=== PATIENT | male | born 1935 | race Caucasian/White ===

== ENCOUNTER 2018-05-27 12:32 | Inpatient (IN) | payer MEDICARE, OTHER ==
[~2018-05-27] VITALS: Ht 180.3 cm; Wt 50.5 kg
[~2018-05-27 12:32] MED LIST: DOXY100C2 PO; HYDR-3583 PO; IBUP-15 PO; LNZ600T PO; NFAMINITAB PO; RNT150T PO; SULF1TAB38 PO
[2018-05-27] MEDS ORDERED: ACETAMINOPHEN 500 MG TAB (TYLENOL) PO STA (12:41)
[2018-05-27] MEDS ORDERED: IBUPROFEN 800 MG (MOTRIN) TAB PO STA (12:41)
[2018-05-27] MEDS ORDERED: LACTATED RINGERS 1,000 ML IV ONE (12:41)
[2018-05-27 12:50] LABS: BASOPHILS % (AUTO) 0 % (0-10); EOSINOPHILS % (AUTO) 0 % (0-10); HEMATOCRIT 30 % (40-54); HEMOGLOBIN 10.3 G/DL (13.3-17.7); LYMPHOCYTES # (AUTO) 0.4 X 10^3 (1.0-4.0); LYMPHOCYTES % (AUTO) 6 % (12-44); MEAN CORPUSCULAR HEMOGLOBIN 32 PG (25-34); MEAN CORPUSCULAR HGB CONC 34 G/DL (32-36); MEAN CORPUSCULAR VOLUME 93 FL (80-99); MEAN PLATELET VOLUME 9.7 FL (7.4-10.4); MONOCYTES # (AUTO) 0.4 X 10^3 (0.0-1.0); MONOCYTES % (AUTO) 7 % (0-12); NEUTROPHILS # (AUTO) 5.3 X 10^3 (1.8-7.8); NEUTROPHILS % (AUTO) 87 % (42-75); PLATELET COUNT 161 10^3/uL (130-400); RED CELL DISTRIBUTION WIDTH 13.6 % (10.0-14.5); WHITE BLOOD COUNT 6.1 10^3/uL (4.3-11.0)
[2018-05-27 12:56] LABS: INR 1.3 (0.8-1.4); PROTHROMBIN TIME PATIENT 15.8 SEC (12.2-14.7)
[2018-05-27 12:57] LABS: BILIRUBIN,URINE NEGATIVE (NEGATIVE); CLARITY,URINE VERY CLOUDY; COLOR,URINE YELLOW; GLUCOSE, URINE (UA) NEGATIVE (NEGATIVE); KETONES,URINE 1+ (NEGATIVE); LEUKOCYTE ESTERASE ,URINE 3+ (NEGATIVE); NITRITE,URINE NEGATIVE (NEGATIVE); PH,URINE 6 (5-9); PROTEIN,URINE 3+ (NEGATIVE); UROBILINOGEN,URINE 4 MG/DL (NORMAL)
[2018-05-27] MEDS ORDERED: LORazepam INJ 2 MG/ML (ATIVAN) VIAL IVP ONE ×2 (13:00→14:45)
[2018-05-27] MEDS ORDERED: LORazepam INJ 2 MG/ML (ATIVAN) VIAL ONE (13:02)
[2018-05-27 13:04] LABS: BACTERIA,URINE LARGE /HPF; SQUAMOUS EPITHELIAL CELL,UR RARE /HPF; WBC,URINE TNTC /HPF
--- NOTE | 2018-05-27 13:04 | ED General ---
General Stated Complaint: VOMITTING AND DIARHEA Source of Information: Skilled Nursing Records Exam Limitations: Other (PT CONFUSED--NORMAL BASELINE PER [facility]AY STAFF. ) History of Present Illness Date Seen by Provider: May 27, 2018 Time Seen by Provider: 12:35 Initial Comments PT ARRIVES VIA EMS FROM [facility] SENT HERE FOR FEVER AND VOMITING THIS AM NO OTHER INFORMATION IS OBTAINABLE PT IS CONFUSED--THIS IS NORMAL BASELINE, PER [facility]F-WAY STAFF PT IS REPEATEDLY YELLING "HELP", IN MID-SENTENCE AND WITH STAFF STANDING NEXT TO HIM, WELL YELLING IN GENERAL PT IS UNCOOPERATIVE, COMBATIVE, TRYING TO BITE, ETC. PT DOES STATE THAT HE VOMITED THIS AM, AND THAT HE DID EAT BREAKFAST TODAY PT DENIES ANY PAIN ANYWHERE, AND NO ABDOMINAL PAIN PT STATES HE HAS NOT HAD DIARRHEA NO OTHER RELEVANT INFORMATION ABOUT CURRENT CONDITION. PT'S SLUBBER HAND MEMORY SEEMS TO BE SOMEWHAT INTACT. PT HAS NO SHORT TERM MEMORY AND IS OTHERWISE ESSENTIALLY CONFUSED PCP: DR. POOL Allergies and Home Medications Allergies Coded Allergies: No Known Drug Allergies (Verified , 02/26/09) Home Medications Arginine/Ascorbate Sod/Zuly AC 1 Each Powd.pack, 1 PACKET PO BID, (Reported) Bisacodyl 10 Mg Supp.rect, 10 MG RC DAILY PRN for CONSTIPATION-3RD LINE, ( Reported) use if MOM is non effective Brimonidine Tartrate 5 Ml Btl, 1 DROP OS BID, (Reported) Cyproheptadine HCl 4 Mg Tablet, 1.5 TAB PO QID, (Reported) Dextran 70/Hypromellose 1 Each Droperette, 1 EACH OS TID, (Reported) Dorzolamide HCl 10 Ml Drops, 1 DROP OU BID, (Reported) Escitalopram Oxalate 10 Mg Tablet, 10 MG PO DAILY, (Reported) Ibuprofen 200 Mg Tablet, 200 MG PO DAILY, (Reported) Latanoprost 2.5 Ml Drops, 1 DROP OS HS, (Reported) Magnesium Hydroxide 400 Mg/5 Ml Oral.susp, 400 MG PO Q12H PRN for CONSTIPATION- 2ND LINE, (Reported) Mirtazapine 15 Mg Tablet, 15 MG PO DAILY, (Reported) Multivitamin 1 Each Tablet, 1 EACH PO DAILY, (Reported) Na Phos,M-B/Na Phos,Di-Ba 133 Ml Enema, 1 EACH RC Q30M PRN for CONSTIPATION-1ST LINE, (Reported) repeat in 30 mins if no results. do not exceed 2 doses in 24 hrs. 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--NO OTHER SURGICAL HISTORY IS OBTAINABLE;MULTIPLE ABSCESS I&D 'S) Eye Surgery, Orthopedic Cardiac: Yes Hypertension Neurological: Yes (NEUROFIBROMATOSIS) Dementia Reproductive Disorders: No Gastrointestinal: Yes Chronic Constipation Musculoskeletal: Yes (NEUROFIBROMATOSIS; LEFT BKA) HEENT: Yes (RIGHT EYE REMOVED; BLIND IN LEFT EYE) Glaucoma Integumentary: Yes (NEUROFIBROMATOSIS; MULTIPLE EPISODES OF CELLULITIS/ABSCESS AND MRSA) Physical Exam Vital Signs Vital Signs - First Documented 05/27/18 12:35 Temp 102.9 Pulse 112 Resp 18 B/P (MAP) 111/90 (97) Pulse Ox 98 O2 Delivery Room Air Capillary Refill : Height, Weight, BMI Height: '" Weight: lbs. oz. kg; BMI Method: General Appearance: Cachetic, Thin, Other (CONTINUOUSLY YELLING "HELP"-- COMBATIVE, TRYING TO BITE, YELLING AT STAFF, ETC. UNKMEPT, MALODOROUS) HEENT: Other (RIGHT EYE REMOVED. BLIND IN LEFT EYE. POOR DENTITION) Respiratory: Normal Breath Sounds, No Accessory Muscle Use, No Respiratory Distress, Decreased Breath Sounds (IN BASES) Cardiovascular: No Edema, No JVD, No Murmur, Normal Peripheral Pulses, Tachycardia Gastrointestinal: Normal Bowel Sounds, No Organomegaly, No Pulsatile Mass, Non Tender, Soft Extremity: No Pedal Edema, Other (LEFT BKA) Neurologic/Psychiatric: Alert, Other (GROSS MOTOR/SENSORY INTACT. MENTATION NOTED ABOVE. PT IS BLIND AND CRANIAL NERVE EXAM IS NOT OBTAINABLE, ARE OTHER NEURO TESTS. PT DOES HAVE SOME DIFFICULTY FOLLOWING SOME COMMANDS) Skin: Normal Color, Warm/Dry, Other (EXTENSIVE NEUROFIBROMAS OVER ENTIRE BODY) Focused Exam Lactate Level 05/27/18 12:35: Lactic Acid Level 1.76 Lactic Acid Level Progress/Results/Core Measures Suspected Sepsis SIRS Temperature: Pulse: Respiratory Rate: Laboratory Tests 05/27/18 12:35: White Blood Count 6.1 Blood Pressure / Mean: 05/27/18 12:35: Lactic Acid Level 1.76 Laboratory Tests 05/27/18 12:35: Creatinine 0.71, INR Comment 1.3, Platelet Count 161, Total Bilirubin 1.0 Results/Orders Lab Results Laboratory Tests Test 05/27/18 12:35 05/27/18 12:45 Range/Units White Blood Count 6.1 4.3-11.0 10^3/uL Red Blood Count 3.20 L 4.35-5.85 10^6/uL Hemoglobin 10.3 L 13.3-17.7 G/DL Hematocrit 30 L 40-54 % Mean Corpuscular Volume 93 80-99 FL Mean Corpuscular Hemoglobin 32 25-34 PG Mean Corpuscular Hemoglobin Concent 34 32-36 G/DL Red Cell Distribution Width 13.6 10.0-14.5 % Platelet Count 161 130-400 10^3/uL Mean Platelet Volume 9.7 7.4-10.4 FL Neutrophils (%) (Auto) 87 H 42-75 % Lymphocytes (%) (Auto) 6 L 12-44 % Monocytes (%) (Auto) 7 0-12 % Eosinophils (%) (Auto) 0 0-10 % Basophils (%) (Auto) 0 0-10 % Neutrophils # (Auto) 5.3 1.8-7.8 X 10^3 Lymphocytes # (Auto) 0.4 L 1.0-4.0 X 10^3 Monocytes # (Auto) 0.4 0.0-1.0 X 10^3 Eosinophils # (Auto) 0.0 0.0-0.3 10^3/uL Basophils # (Auto) 0.0 0.0-0.1 10^3/uL Neutrophils % (Manual) 85 % Lymphocytes % (Manual) 9 % Monocytes % (Manual) 6 % Blood Morphology Comment NORMAL Prothrombin Time 15.8 H 12.2-14.7 SEC INR Comment 1.3 0.8-1.4 Activated Partial Thromboplast Time 35 24-35 SEC Sodium Level 139 135-145 MMOL/L Potassium Level 4.4 3.6-5.0 MMOL/L Chloride Level 111 H 98-107 MMOL/L Carbon Dioxide Level 22 21-32 MMOL/L Anion Gap 6 5-14 MMOL/L Blood Urea Nitrogen 34 H 7-18 MG/DL Creatinine 0.71 0.60-1.30 MG/DL Estimat Glomerular Filtration Rate > 60 BUN/Creatinine Ratio 48 Glucose Level 114 H 70-105 MG/DL Lactic Acid Level 1.76 0.50-2.00 MMOL/L Calcium Level 7.9 L 8.5-10.1 MG/DL Magnesium Level 1.8 1.8-2.4 MG/DL Total Bilirubin 1.0 0.1-1.0 MG/DL Aspartate Amino Transf (AST/SGOT) 27 5-34 U/L Alanine Aminotransferase (ALT/SGPT) 13 0-55 U/L Alkaline Phosphatase 59 40-136 U/L Troponin I < 0.30 <0.30 NG/ML Total Protein 5.4 L 6.4-8.2 GM/DL Albumin 2.8 L 3.2-4.5 GM/DL Amylase Level 65 25-125 U/L Lipase 8 8-78 U/L TSH [place] Testing 1.17 0.35-4.94 UIU/ML Urine Color YELLOW Urine Clarity VERY CLOUDY H Urine pH 6 5-9 Urine Specific [place] 1.015 L 1.016-1.022 Urine Protein 3+ H NEGATIVE Urine Glucose (UA) NEGATIVE NEGATIVE Urine Ketones 1+ H NEGATIVE Urine Nitrite NEGATIVE NEGATIVE Urine Bilirubin NEGATIVE NEGATIVE Urine Urobilinogen 4 H NORMAL MG/DL Urine Leukocyte Esterase 3+ H NEGATIVE Urine RBC (Auto) 5+ H NEGATIVE Urine RBC 10-25 H /HPF Urine WBC TNTC H /HPF Urine Squamous Epithelial Cells RARE /HPF Urine Crystals NONE /LPF Urine Bacteria LARGE H /HPF Urine Casts NONE /LPF Urine Mucus NEGATIVE /LPF Urine Culture Indicated YES Micro Results Microbiology 05/27/18 Urine Culture - Preliminary, Resulted Sent To [facility] My Orders Orders - BAM MALIN DO Saline Lock/Iv-Start (05/27/18 12:41) Ekg Tracing (05/27/18 12:41) Catheter(Urinary) Insert & Ass 15 (05/27/18 12:41) Monitor-Rhythm Ecg Trace Only (05/27/18 12:41) Amylase (05/27/18 12:41) Cbc With Automated Diff (05/27/18 12:41) Comprehensive Metabolic Panel (05/27/18 12:41) Lactic Acid Analyzer (05/27/18 12:41) Lipase (05/27/18 12:41) Magnesium (05/27/18 12:41) Protime With Inr (05/27/18 12:41) Partial Thromboplastin Time (05/27/18 12:41) Thyroid Analyzer (05/27/18 12:41) Troponin I (05/27/18 12:41) Ua Culture If Indicated (05/27/18 12:41) Blood Culture (05/27/18 12:41) Chest 1 View, Ap/Pa Only (05/27/18 12:41) Saline Lock/Iv-Start (05/27/18 12:41) Lactated Ringers (Lr 1000 Ml Iv Solution (05/27/18 12:41) Acetaminophen Tablet (Tylenol Tablet) (05/27/18 12:41) Ibuprofen Tablet (Motrin Tablet) (05/27/18 12:41) Manual Differential (05/27/18 12:35) Lorazepam Injection (Ativan Injection) (05/27/18 13:00) Urine Culture (05/27/18 12:45) Lorazepam Injection (Ativan Injection) (05/27/18 13:02) Ceftriaxone Injection (Rocephin Injectio (05/27/18 13:15) Lorazepam Injection (Ativan Injection) (05/27/18 14:45) Medications Given in ED Current Medications Medications Dose Ordered Sig/Selena Route Start Time Stop Time Status Last Admin Dose Admin Ceftriaxone Sodium 1000 mg/ Sodium Chloride 50 ml @ 100 mls/hr ONCE ONCE IV 05/27/18 13:15 05/27/18 13:44 DC 05/27/18 14:35 100 MLS/HR Lactated Ringer's 1,000 ml @ 0 mls/hr Q0M ONCE IV 05/27/18 12:41 05/27/18 12:44 DC 05/27/18 14:13 1,000 MLS/HR Lorazepam 0.5 mg ONCE ONCE IVP 05/27/18 13:00 7/14/18 13:09 DC 05/27/18 13:05 0.5 MG Vital Signs/I&O 05/27/18 05/27/18 05/27/18 05/27/18 12:35 15:08 15:30 16:52 Temp 102.9 99.5 99.8 Pulse 112 94 92 Resp 18 18 16 B/P (MAP) 111/90 (97) 90/60 101/62 (75) Pulse Ox 98 97 96 O2 Delivery Room Air Room Air Room Air Room Air Capillary Refill : Progress Note : Progress Note TEMP 102.9 ON ARRIVAL--COMING DOWN AT TIME OF ADMIT. PT GIVEN ATIVAN FOR AGITATION--PT CALMED AND ABLE TO REST FOR MOST OF REMAINDER OF ER STAY, DID REQUIRE REPEAT DOSE OF ATIVAN DUE TO AGITATION AFTER AN ADDITIONAL LAB DRAW. NO COUGH, DYSPNEA OR HYPOXIA AT ANY TIME DURING ER STAY BP UP WITH FLUIDS TO > 100 SYSTOLIC WITH LESS THAN 1 LITER OF FLUIDS GIVEN ECG Initial ECG Impression Date: May 27, 2018 Initial ECG Impression Time: 12:38 Initial ECG Rate: 106 Initial ECG Rhythm: S.Tach (MUCH ARTIFACT DUE TO PT UNCOOPERATIVENESS. ) Diagnostic Imaging Comments CXR--INFILTRATE IN LEFT LUNG BASE, POSSIBLE DEVELOPING INFILTRATE IN RIGHT LUNG BASE, PER RADIOLOGIST REPORT @ [address]: [address] Departure Communication (Admissions) 1353--CALLED DR. HURT, CASH APPLICATIONS COORDINATOR FOR [facility], ACCEPTS PT FOR ADMIT Impression Primary Impression: Severe sepsis Additional Impressions: UTI (urinary tract infection) Bilateral pneumonia Dementia Dehydration Anemia Disposition: 09 ADMITTED INPATIENT Condition: Improved Admissions Decision to Admit Reason: Admit from ER (General) Decision to Admit/Date: May 27, 2018 Time/Decision to Admit Time: 13:55 Departure-Patient Inst. Referrals: AIDEN BRYANT MD (PCP/Family) Primary Care Physician BAM MALIN DO May 27, 2018 13:04
[2018-05-27 13:07] LABS: ALANINE AMINOTRANSFERASE 13 U/L (0-55); ALBUMIN 2.8 GM/DL (3.2-4.5); ALKALINE PHOSPHATASE 59 U/L (40-136); AMYLASE 65 U/L (25-125); BUN/CREATININE RATIO 48; CALCIUM 7.9 MG/DL (8.5-10.1); CARBON DIOXIDE 22 MMOL/L (21-32); CHLORIDE 111 MMOL/L (98-107); CREATININE SERUM 0.71 MG/DL (0.60-1.30); GFR ESTIMATED > 60; GLUCOSE 114 MG/DL (70-105); LIPASE 8 U/L (8-78); MAGNESIUM 1.8 MG/DL (1.8-2.4); POTASSIUM 4.4 MMOL/L (3.6-5.0); SODIUM 139 MMOL/L (135-145); TOTAL PROTEIN 5.4 GM/DL (6.4-8.2)
[2018-05-27 13:14] LABS: LYMPHOCYTES % (MANUAL) 9 %; MONOCYTES % (MANUAL) 6 %; NEUTROPHILS % (MANUAL) 85 %; RBC MORPH NORMAL
[2018-05-27] MEDS ORDERED: cefTRIAXone INJECTION 1,000 MG in NS (IVPB) 50 ML IV ONE (13:15)
--- NOTE | 2018-05-27 13:20 | Diagnostic Imaging Report ---
INDICATION: Fever COMPARISON: None. FINDINGS: Single view of the chest demonstrates infiltrate in the left lung base. Questionable developing infiltrate is seen in the right base. There was no pneumothorax or large effusion. The heart is normal. Osseous structures are age-appropriate. IMPRESSION: Infiltrate left lung base, questionable developing infiltrate right lung base. Followup recommended. Dictated by: Dictated on workstation # [id number]
[2018-05-27 13:26] LABS: TSH (THYROID ANALYZER) 1.17 UIU/ML (0.35-4.94)
[2018-05-27 15:30] VITALS: BP 101/62
[2018-05-27] MEDS ORDERED: ACETAMINOPHEN 500 MG TAB (TYLENOL) PO PRN (15:45)
[2018-05-27] MEDS ORDERED: ONDANSETRON 4 MG/2 ML (SDV) Z0FRAN IV PRN (15:45)
[2018-05-27] MEDS ORDERED: IBUPROFEN 800 MG (MOTRIN) TAB PO PRN (15:45)
[2018-05-27] MEDS ORDERED: LEVOFLOXACIN 750 MG/D5W 150 ML PRE-MIX IV SCH (16:00)
[2018-05-27] MEDS: D5 1/2 NS W/KCL 20 MEQ/L 1,000 ML IV SCH ×2 (16:20→22:15)
[2018-05-27] MEDS: PANTOPRAZOLE 40 MG/10 ML (PROTONIX) VIAL IV SCH (16:21)
--- NOTE | 2018-05-27 16:43 | History & Physicial (CHS) ---
HPI History of Present Illness: 83-year-old male admitted to [facility] notified me of patient having a fever and vomiting this morning. He was taken to [facility] emergency department where he was evaluated. Apparently patient prior to ED was noted to repeatedly help. He was uncooperative and combative. He denied any pain. He is with dementia and not a very good historian. Exam Limitations: clinical condition Date seen by provider: May 27, 2018 Time Seen by Provider: 16:50 Attending Physician Freddy Hurt MD PCP Edgardo Schmitz MD Consult Date of Admission May 27, 2018 at 13:53 Home Medications Home Medications Reviewed patient Home Medication Reconciliation performed by pharmacy medication reconciliations pharmacy technician assistant and/or nursing. Patients Allergies have been reviewed. Allergies Coded Allergies: No Known Drug Allergies (Verified , 02/26/09) PLN-Ghgmbc-Wkujap Hx Patient Social History Alcohol Use: Denies Use Recreational Drug Use: No Smoking Status: Former Smoker Type Used: Cigarettes Recent Foreign Travel: No Contact w/other who traveled: No Recent Hopitalizations: No (february 2009) Recent Infectious Disease Expo: No Review of Systems (CHC) Constitutional: see HPI Reviewed Test Results Reviewed Test Results Lab Laboratory Tests Test 05/27/18 12:35 05/27/18 12:45 Range/Units White Blood Count 6.1 4.3-11.0 10^3/uL Red Blood Count 3.20 L 4.35-5.85 10^6/uL Hemoglobin 10.3 L 13.3-17.7 G/DL Hematocrit 30 L 40-54 % Mean Corpuscular Volume 93 80-99 FL Mean Corpuscular Hemoglobin 32 25-34 PG Mean Corpuscular Hemoglobin Concent 34 32-36 G/DL Red Cell Distribution Width 13.6 10.0-14.5 % Platelet Count 161 130-400 10^3/uL Mean Platelet Volume 9.7 7.4-10.4 FL Neutrophils (%) (Auto) 87 H 42-75 % Lymphocytes (%) (Auto) 6 L 12-44 % Monocytes (%) (Auto) 7 0-12 % Eosinophils (%) (Auto) 0 0-10 % Basophils (%) (Auto) 0 0-10 % Neutrophils # (Auto) 5.3 1.8-7.8 X 10^3 Lymphocytes # (Auto) 0.4 L 1.0-4.0 X 10^3 Monocytes # (Auto) 0.4 0.0-1.0 X 10^3 Eosinophils # (Auto) 0.0 0.0-0.3 10^3/uL Basophils # (Auto) 0.0 0.0-0.1 10^3/uL Neutrophils % (Manual) 85 % Lymphocytes % (Manual) 9 % Monocytes % (Manual) 6 % Blood Morphology Comment NORMAL Prothrombin Time 15.8 H 12.2-14.7 SEC INR Comment 1.3 0.8-1.4 Activated Partial Thromboplast Time 35 24-35 SEC Sodium Level 139 135-145 MMOL/L Potassium Level 4.4 3.6-5.0 MMOL/L Chloride Level 111 H 98-107 MMOL/L Carbon Dioxide Level 22 21-32 MMOL/L Anion Gap 6 5-14 MMOL/L Blood Urea Nitrogen 34 H 7-18 MG/DL Creatinine 0.71 0.60-1.30 MG/DL Estimat Glomerular Filtration Rate > 60 BUN/Creatinine Ratio 48 Glucose Level 114 H 70-105 MG/DL Lactic Acid Level 1.76 0.50-2.00 MMOL/L Calcium Level 7.9 L 8.5-10.1 MG/DL Magnesium Level 1.8 1.8-2.4 MG/DL Total Bilirubin 1.0 0.1-1.0 MG/DL Aspartate Amino Transf (AST/SGOT) 27 5-34 U/L Alanine Aminotransferase (ALT/SGPT) 13 0-55 U/L Alkaline Phosphatase 59 40-136 U/L Troponin I < 0.30 <0.30 NG/ML Total Protein 5.4 L 6.4-8.2 GM/DL Albumin 2.8 L 3.2-4.5 GM/DL Amylase Level 65 25-125 U/L Lipase 8 8-78 U/L TSH [place] Testing 1.17 0.35-4.94 UIU/ML Urine Color YELLOW Urine Clarity VERY CLOUDY H Urine pH 6 5-9 Urine Specific [place] 1.015 L 1.016-1.022 Urine Protein 3+ H NEGATIVE Urine Glucose (UA) NEGATIVE NEGATIVE Urine Ketones 1+ H NEGATIVE Urine Nitrite NEGATIVE NEGATIVE Urine Bilirubin NEGATIVE NEGATIVE Urine Urobilinogen 4 H NORMAL MG/DL Urine Leukocyte Esterase 3+ H NEGATIVE Urine RBC (Auto) 5+ H NEGATIVE Urine RBC 10-25 H /HPF Urine WBC TNTC H /HPF Urine Squamous Epithelial Cells RARE /HPF Urine Crystals NONE /LPF Urine Bacteria LARGE H /HPF Urine Casts NONE /LPF Urine Mucus NEGATIVE /LPF Urine Culture Indicated YES Radiology NAME: [facility] REC#: [id number] PT STATUS: REG ER : 1935 PHYSICIAN: BAM MALIN DO ADMIT DATE: 05/27/18/ER Signed Date of Exam: 05/27/18 CHEST 1 VIEW, AP/PA ONLY INDICATION: Fever COMPARISON: None. FINDINGS: Single view of the chest demonstrates infiltrate in the left lung base. Questionable developing infiltrate is seen in the right base. There was no pneumothorax or large effusion. The heart is normal. Osseous structures are age-appropriate. IMPRESSION: Infiltrate left lung base, questionable developing infiltrate right lung base. Followup recommended. Dictated by: Dictated on workstation # [id number] Dict: 05/27/18 1316 Trans: 05/27/18 1341 Interpreted by: FREDDY TAVAREZ Electronically signed by: FREDDY TAVAREZ 05/27/18 1341 Physical Exam-([facility]) Physical Exam Vital Signs VS - Last 72 Hours, by Label 05/27/18 05/27/18 05/27/18 12:35 15:08 15:30 Temp 102.9 99.5 99.8 Pulse 112 94 92 Resp 18 18 16 B/P (MAP) 111/90 (97) 90/60 101/62 (75) Pulse Ox 98 97 96 O2 Delivery Room Air Room Air Room Air Capillary Refill : Less Than 3 Seconds General Appearance: no apparent distress HEENT: other (Mucous membranes moist) Neck: supple Respiratory: decreased breath sounds (In bases bilaterally), crackles Cardiovascular: regular rate, rhythm (With occasional ectopy) Gastrointestinal: soft, abnormal bowel sounds (Increased) Rectal: deferred Assessment/Plan Assessment/Plan Admission Dx 1. Severe sepsis due to urosepsis 2. Bilateral basilar pneumonia 3. Dehydration 4. Dementia 5. Anemia Admission Status: Inpatient Order (span 2 midnights) Reason for Inpatient Admission: Further IV antibiotics and hydration support Assessment & Plan 1. Severe sepsis due to urosepsis -IV fluid rehydration along with IV antibiotics, ceftriaxone as well as Levaquin 2. Bilateral basilar pneumonia -Ceftriaxone and Levaquin initiated day number 1 3. Dehydration -IV fluid rehydration 4. Dementia 5. Anemia -Monitor CBC FREDDY HURT MD May 27, 2018 16:43
[2018-05-27] MEDS ORDERED: NA P133E22 RC (17:52)
[2018-05-27] MEDS ORDERED: POLY17PO6 PO (17:52)
[2018-05-27] MEDS ORDERED: MULT-974 PO (17:52)
[2018-05-27] MEDS ORDERED: MIRT15TA6 PO (17:52)
[2018-05-27] MEDS ORDERED: CYPR4TAB41 PO (17:52)
[2018-05-27] MEDS ORDERED: IBUP-2055 PO (17:52)
[2018-05-27] MEDS ORDERED: MAGN400O7 PO (17:52)
[2018-05-27] MEDS ORDERED: BISA10SU58 RC (17:52)
[2018-05-27] MEDS ORDERED: TIMO5DRO5 OU (17:52)
[2018-05-27] MEDS ORDERED: DEXT1DRO7 OS (17:52)
[2018-05-27] MEDS ORDERED: BRIMON0.2 OS (17:52)
[2018-05-27] MEDS ORDERED: DORZ10DR18 OU (17:52)
[2018-05-27] MEDS ORDERED: ARGI1POW19 PO (17:52)
[2018-05-27] MEDS ORDERED: LATA2.5D5 OS (17:52)
[2018-05-27] MEDS ORDERED: ESCI10TA55 PO (17:52)
[2018-05-27 18:00] VITALS: BP 92/54
[2018-05-27 19:26] VITALS: BP 103/65
[2018-05-27 22:00] VITALS: BP 96/54
[2018-05-28] VITALS: BP 115/64
[2018-05-28 04:00] VITALS: BP 115/71
[2018-05-28] MEDS: D5 1/2 NS W/KCL 20 MEQ/L 1,000 ML IV SCH ×3 (04:53→18:44)
[2018-05-28 06:11] LABS: BASOPHILS % (AUTO) 0 % (0-10); EOSINOPHILS # (AUTO) 0.1 10^3/uL (0.0-0.3); EOSINOPHILS % (AUTO) 2 % (0-10); HEMATOCRIT 30 % (40-54); HEMOGLOBIN 9.8 G/DL (13.3-17.7); LYMPHOCYTES # (AUTO) 0.7 X 10^3 (1.0-4.0); LYMPHOCYTES % (AUTO) 18 % (12-44); MEAN CORPUSCULAR HEMOGLOBIN 31 PG (25-34); MEAN CORPUSCULAR HGB CONC 33 G/DL (32-36); MEAN CORPUSCULAR VOLUME 94 FL (80-99); MEAN PLATELET VOLUME 9.2 FL (7.4-10.4); MONOCYTES # (AUTO) 0.4 X 10^3 (0.0-1.0); MONOCYTES % (AUTO) 11 % (0-12); NEUTROPHILS # (AUTO) 2.8 X 10^3 (1.8-7.8); NEUTROPHILS % (AUTO) 70 % (42-75); PLATELET COUNT 151 10^3/uL (130-400); RED BLOOD COUNT 3.15 10^6/uL (4.35-5.85); RED CELL DISTRIBUTION WIDTH 13.9 % (10.0-14.5)
[2018-05-28 06:36] LABS: ALANINE AMINOTRANSFERASE 11 U/L (0-55); ALBUMIN 2.6 GM/DL (3.2-4.5); ALKALINE PHOSPHATASE 50 U/L (40-136); BILIRUBIN,TOTAL 0.5 MG/DL (0.1-1.0); BUN/CREATININE RATIO 45; CALCIUM 8.2 MG/DL (8.5-10.1); CARBON DIOXIDE 22 MMOL/L (21-32); CHLORIDE 113 MMOL/L (98-107); CREATININE SERUM 0.65 MG/DL (0.60-1.30); GFR ESTIMATED > 60; GLUCOSE 84 MG/DL (70-105); POTASSIUM 4.3 MMOL/L (3.6-5.0); SODIUM 138 MMOL/L (135-145); TOTAL PROTEIN 4.9 GM/DL (6.4-8.2)
[2018-05-28 08:00] VITALS: BP 126/78
--- NOTE | 2018-05-28 08:22 | Progress Note (SOAP) ---
Subjective Subjective/Events-last exam Patient apparently feeling better. He has much more argumentative this morning. He does not voice any part of his body is hurting. Review of Systems Date Seen by Provider: May 28, 2018 Time Seen by Provider: 07:40 Focused Exam Lactate Level 05/27/18 12:35: Lactic Acid Level 1.76 Objective Exam Last Set of Vital Signs Vital Signs Date Time Temp Pulse Resp B/P (MAP) Pulse Ox O2 Delivery O2 Flow Rate FiO2 05/28/18 04:00 98.0 83 18 115/71 (86) 98 Room Air Capillary Refill : Less Than 3 Seconds I&O Intake and Output 05/28/18 00:00 Intake Total 3250 ml Output Total 175 ml Balance 3075 ml Intake Oral 50 ml IV Total 3200 ml Output Urine Total 175 ml Daily Weight Change Unsure General: No Acute Distress Lungs: Clear to Auscultation (Except for lung bases) Heart: Regular Rate (With occasional ectopy) Abdomen: Soft Results/Procedures Lab Laboratory Tests 05/27/18 12:35: White Blood Count 6.1, Red Blood Count 3.20L, Hemoglobin 10.3L, Hematocrit 30L, Mean Corpuscular Volume 93, Mean Corpuscular Hemoglobin 32, Mean Corpuscular Hemoglobin Concent 34, Red Cell Distribution Width 13.6, Platelet Count 161, Mean Platelet Volume 9.7, Neutrophils (%) (Auto) 87H, Lymphocytes (%) (Auto) 6L , Monocytes (%) (Auto) 7, Eosinophils (%) (Auto) 0, Basophils (%) (Auto) 0, Neutrophils # (Auto) 5.3, Lymphocytes # (Auto) 0.4L, Monocytes # (Auto) 0.4, Eosinophils # (Auto) 0.0, Basophils # (Auto) 0.0, Neutrophils % (Manual) 85, Lymphocytes % (Manual) 9, Monocytes % (Manual) 6, Blood Morphology Comment NORMAL, Prothrombin Time 15.8H, INR Comment 1.3, Activated Partial Thromboplast Time 35, Sodium Level 139, Potassium Level 4.4, Chloride Level 111H, Carbon Dioxide Level 22, Anion Gap 6, Blood Urea Nitrogen 34H, Creatinine 0.71, Estimat Glomerular Filtration Rate > 60, BUN/Creatinine Ratio 48, Glucose Level 114H, Lactic Acid Level 1.76, Calcium Level 7.9L, Magnesium Level 1.8, Total Bilirubin 1.0, Aspartate Amino Transf (AST/SGOT) 27, Alanine Aminotransferase ( ALT/SGPT) 13, Alkaline Phosphatase 59, Troponin I < 0.30, Total Protein 5.4L, Albumin 2.8L, Amylase Level 65, Lipase 8, TSH [place] Testing 1.17 05/27/18 12:45: Urine Color YELLOW, Urine Clarity VERY CLOUDYH, Urine pH 6, Urine Specific [place] 1.015L, Urine Protein 3+H, Urine Glucose (UA) NEGATIVE, Urine Ketones 1+ H, Urine Nitrite NEGATIVE, Urine Bilirubin NEGATIVE, Urine Urobilinogen 4H, Urine Leukocyte Esterase 3+H, Urine RBC (Auto) 5+H, Urine RBC 10-25H, Urine WBC TNTCH, Urine Squamous Epithelial Cells RARE, Urine Crystals NONE, Urine Bacteria LARGEH, Urine Casts NONE, Urine Mucus NEGATIVE, Urine Culture Indicated YES 05/28/18 05:28: White Blood Count 4.0L, Red Blood Count 3.15L, Hemoglobin 9.8L, Hematocrit 30L, Mean Corpuscular Volume 94, Mean Corpuscular Hemoglobin 31, Mean Corpuscular Hemoglobin Concent 33, Red Cell Distribution Width 13.9, Platelet Count 151, Mean Platelet Volume 9.2, Neutrophils (%) (Auto) 70, Lymphocytes (%) (Auto) 18, Monocytes (%) (Auto) 11, Eosinophils (%) (Auto) 2, Basophils (%) (Auto) 0, Neutrophils # (Auto) 2.8, Lymphocytes # (Auto) 0.7L, Monocytes # (Auto) 0.4, Eosinophils # (Auto) 0.1, Basophils # (Auto) 0.0, Sodium Level 138, Potassium Level 4.3, Chloride Level 113H, Carbon Dioxide Level 22, Anion Gap 3L, Blood Urea Nitrogen 29H, Creatinine 0.65, Estimat Glomerular Filtration Rate > 60, BUN /Creatinine Ratio 45, Glucose Level 84, Calcium Level 8.2L, Total Bilirubin 0.5 , Aspartate Amino Transf (AST/SGOT) 19, Alanine Aminotransferase (ALT/SGPT) 11, Alkaline Phosphatase 50, Total Protein 4.9L, Albumin 2.6L Microbiology 05/27/18 Urine Culture - Preliminary, Resulted Sent To [facility] Radiology NAME: [facility] REC#: [id number] PT STATUS: REG ER : 1935 PHYSICIAN: BAM MALIN DO ADMIT DATE: 05/27/18/ER Signed Date of Exam: 05/27/18 CHEST 1 VIEW, AP/PA ONLY INDICATION: Fever COMPARISON: None. FINDINGS: Single view of the chest demonstrates infiltrate in the left lung base. Questionable developing infiltrate is seen in the right base. There was no pneumothorax or large effusion. The heart is normal. Osseous structures are age-appropriate. IMPRESSION: Infiltrate left lung base, questionable developing infiltrate right lung base. Followup recommended. Dictated by: Dictated on workstation # [id number] Dict: 05/27/18 1316 Trans: 05/27/18 1341 Interpreted by: JOSE TAVAREZ Electronically signed by: JOSE TAVAREZ 05/27/18 1341 Assessment/Plan Assessment/Plan Assessment & Plan 1. Severe sepsis due to urosepsis -IV fluid rehydration along with IV antibiotics, ceftriaxone as well as Levaquin 05/28 day number 2 of ceftriaxone and Levaquin -Recheck CBC in the morning. -Urine culture is pending 2. Bilateral basilar pneumonia -Ceftriaxone and Levaquin initiated day number 1 3. Dehydration -IV fluid rehydration 05/28 IV fluids continue 4. Dementia 5. Anemia -Monitor CBC 05/28 hemoglobin stable at 9.8 Clinical Quality Measures DVT/VTE Risk/Contraindication: Risk Factor Score Per Nursin RFS Level Per Nursing on Admit: 4+=Very High JOSE HURT MD May 28, 2018 08:22
[2018-05-28] MEDS: PANTOPRAZOLE 40 MG/10 ML (PROTONIX) VIAL IV SCH (08:36)
--- NOTE | 2018-05-28 09:55 | Diagnostic Imaging Report ---
INDICATION: Pneumonia. Time of exam 3:31 AM Correlation is made with prior study one day earlier. The heart size is stable. There has been some improved aeration to left base since yesterday. The right base is clear. There is some increased density in the right upper lobe which may represent some mild infiltrate. Calcified granuloma left upper lobe is seen. No effusion or pneumothorax is identified. IMPRESSION: Overall improved aeration of both bases since yesterday. There is some questionable mild infiltrate right upper lobe. Dictated by: Dictated on workstation # [id number]
[2018-05-28] MEDS: LORazepam INJ 2 MG/ML (ATIVAN) VIAL IV PRN ×4 (09:59→22:14)
[2018-05-28 12:00] VITALS: BP 149/84
[2018-05-28] MEDS: cefTRIAXone 1 GM/NS 50 ML IVPB IV SCH ×2 (13:24)
[2018-05-28 16:00] VITALS: BP 147/92
--- OUTSIDE RECORDS SUMMARY | 2018-05-28 16:05 | XMS REPORT ---
Author Damien Alvarado [facility], [place] eClinicalWorks Address Unknown Phone Unavailable Care Team Providers Care Stations Superintendent Name Role Phone Damien Bill CP Unavailable Allergies, Adverse Reactions, Alerts Substance Reaction Event Type N.K.D.A. 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 Problem Legal blindness, 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 Active Problem Macular degeneration (senile) of retina, unspecified 362.50 Active Problem Generalized osteoarthrosis, involving multiple sites 715.09 Active Assessment One eye: profound vision impairment; other eye: vision not specified 369.67 Active Assessment Hyperplasia of prostate, unspecified, without urinary obstruction and other lower urinary tract symptoms [LUTS] 600.90 Active Problem Allergic rhinitis, cause unspecified 477.9 Active Assessment Neurofibromatosis, 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 Problem Other fibromatoses of muscle, ligament, and fascia 728.79 Active Assessment Generalized osteoarthrosis, involving multiple sites 715.09 Active Problem Hyperplasia of prostate, unspecified, without urinary obstruction and other lower urinary tract symptoms [LUTS] 600.90 Active Medications Medication Code System Code Instructions Start Date End Date Status Dosage Flonase [facility] [address]-40 50 MCG/ACT Nasally Once a day 1 spray in each nostril Timolol Maleate [facility] [address]-67 0.25 % Ophthalmic Once a day 1 drop into affected eye Doxazosin Mesylate [facility] [address]-49 2 MG Orally Once a day 1 tablet Zantac [facility] [address]-82 150 MG Orally Twice a day 1 tablet Ibuprofen [facility] [address]-91 200 MG Orally every 6 hrs 1 tablet as needed Procedures Procedure Coding System Code Date DOC MEDS VERIFIED W/PT OR RE CPT-4 G8427 Aug 12, 2015 CLIN DEPRESSION SCREEN NOT D CPT-4 G8432 Aug 12, 2015 Office Visit, Est Pt., Level 3 CPT-4 52982 Aug 12, 2015 DOC PAIN ASSESS NO DOC F/U PLAN RNS CPT-4 G8509 Aug 12, 2015 BP SYS <130 AND GAYTAN <80 CPT-4 G8476 Aug 12, 2015 DSCHRG MED/CURRENT MED MERGE CPT-4 1111F Aug 12, 2015 PAIN ASSESSMENT DOCUMENT CPT-4 G8440 Aug 12, 2015 TX PLAN DEVELOP & DOCUMENT CPT-4 G8437 Aug 12, 2015 TOBACCO NON-USER CPT-4 G8457 Aug 12, 2015 PRESCRIP NOT GEN AT ENCOUNTE CPT-4 G8445 Aug 12, 2015 Vital Signs Date/Time: Aug 12, 2015 Oximetry 98 % Height 70.5 in Results No Known Results Summary Purpose eClinicalWorks Submission
--- OUTSIDE RECORDS SUMMARY | 2018-05-28 16:15 | XMS REPORT ---
Author Damien Alvarado Organization eClinicalWorks Address Unknown Phone Unavailable Care Team Providers Care Service Aide Name Role Phone Damien Bill CP Unavailable Allergies No Known Allergies Problems Problem Type Condition Code Onset Dates [...] osteoarthrosis, involving multiple sites 715.09 Active Problem Allergic rhinitis, cause unspecified 477.9 Active Problem Other fibromatoses of muscle, ligament, and fascia 728.79 Active Problem Hyperplasia of prostate, unspecified, without urinary obstruction and other lower urinary tract symptoms [LUTS] 600.90 Active Medications No Known Medications Results No Known Results Summary Purpose eClinicalWorks Submission
--- OUTSIDE RECORDS SUMMARY | 2018-05-28 16:16 | XMS REPORT ---
Author Author Damien Bill Organization eClinicalWorks Address Unknown Phone Unavailable Care Team Providers Care Dye Weigher Name Role Phone Damien Bill CP Unavailable Allergies, Adverse Reactions, Alerts Substance Reaction Event Type N.K.D.A. 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 Problem Allergic rhinitis, unspecified J30.9 Active Assessment Unspecified macular degeneration H35.30 Active Assessment Esophagitis, unspecified K20.9 Active Assessment Blindness, right eye, normal vision left eye H54.41 Active Assessment Legal blindness, as defined in [place] H54.8 Active Assessment Primary generalized (osteo)arthritis M15.0 Active Problem Blindness, right eye, normal vision left eye H54.41 Active Assessment Enlarged prostate without lower urinary tract symptoms N40.0 Active Problem Legal blindness, as defined in [place] H54.8 Active Assessment Neurofibromatosis, type 1 Q85.01 Active Problem Neurofibromatosis, type 1 Q85.01 Active Medications Medication Code System Code Instructions Start Date End Date Status Dosage Flonase [facility] [address]-52 50 MCG/ACT Nasally Once a day 1 spray in each nostril Doxazosin Mesylate [facility] [address]-80 2 MG Orally Once a day 1 tablet Zantac [facility] [address]-29 150 MG Orally Twice a day 1 tablet Cosopt [facility] [address]-68 22.3-6.8 MG/ML Ophthalmic Twice a day 1 drop into affected eye Ibuprofen [facility] [address]-12 200 MG Orally every 6 hrs 1 tablet as needed Timolol Maleate [facility] [address]-09 0.25 % Ophthalmic Once a day 1 drop into affected eye Procedures Procedure Coding System Code Date DOC PAIN ASSESS NO DOC F/U PLAN RNS CPT-4 G8509 Sep 11, 2015 TOBACCO NON-USER CPT-4 G8457 Sep 11, 2015 MOST RECENT SYSTOLIC BP <140 MM HG CPT-4 G8588 Sep 11, 2015 TX PLAN DEVELOP & DOCUMENT CPT-4 G8437 Sep 11, 2015 CLIN DEPRESSION SCREEN NOT D CPT-4 G8432 Sep 11, 2015 PRESCRIP NOT GEN AT ENCOUNTE CPT-4 G8445 Sep 11, 2015 PAIN ASSESSMENT DOCUMENT CPT-4 G8440 Sep 11, 2015 MOST RECENT DIASTOLIC BP <90 MM HG CPT-4 G8590 Sep 11, 2015 DSCHRG MED/CURRENT MED MERGE CPT-4 1111F Sep 11, 2015 BMI>=30OR<22 HALEY NO FOLLOWUP CPT-4 G8419 Sep 11, 2015 OSTEOARTHRITIS ASSESS CPT-4 1006F Sep 11, 2015 OSTEOARTHRITIS ASSESS CPT-4 1006F Sep 11, 2015 DOC MEDS VERIFIED W/PT OR RE CPT-4 G8427 Sep 11, 2015 ELDER MALTX SCR DOC NEG NO F/U RQR CPT-4 G8734 Sep 11, 2015 Office Visit, Est Pt., Level 3 CPT-4 78192 Sep 11, 2015 Vital Signs Date/Time: Sep 11, 2015 BMI 21.07 Index Weight 149.0 lbs Height 70.5 in Respiratory Rate 21 /min Temperature 98.4 F Cardiac Monitoring Heart Rate 91 /min Oximetry 98 % Blood Pressure Diastolic 56 mm Hg Blood Pressure Systolic 137 mm Hg Results No Known Results Summary Purpose eClinicalWorks Submission
[2018-05-29 00:38] VITALS: BP 148/85
[2018-05-29] MEDS: D5 1/2 NS W/KCL 20 MEQ/L 1,000 ML IV SCH ×3 (01:48→14:40)
[2018-05-29] MEDS: LORazepam INJ 2 MG/ML (ATIVAN) VIAL IV PRN ×2 (04:40→09:47)
[2018-05-29 05:53] LABS: BASOPHILS % (AUTO) 0 % (0-10); EOSINOPHILS # (AUTO) 0.2 10^3/uL (0.0-0.3); EOSINOPHILS % (AUTO) 4 % (0-10); HEMATOCRIT 31 % (40-54); HEMOGLOBIN 10.7 G/DL (13.3-17.7); LYMPHOCYTES # (AUTO) 1.1 X 10^3 (1.0-4.0); LYMPHOCYTES % (AUTO) 24 % (12-44); MEAN CORPUSCULAR HEMOGLOBIN 32 PG (25-34); MEAN CORPUSCULAR HGB CONC 34 G/DL (32-36); MEAN CORPUSCULAR VOLUME 92 FL (80-99); MEAN PLATELET VOLUME 9.4 FL (7.4-10.4); MONOCYTES # (AUTO) 0.6 X 10^3 (0.0-1.0); MONOCYTES % (AUTO) 12 % (0-12); NEUTROPHILS # (AUTO) 2.8 X 10^3 (1.8-7.8); NEUTROPHILS % (AUTO) 61 % (42-75); PLATELET COUNT 160 10^3/uL (130-400); RED BLOOD COUNT 3.38 10^6/uL (4.35-5.85); RED CELL DISTRIBUTION WIDTH 13.6 % (10.0-14.5); WHITE BLOOD COUNT 4.7 10^3/uL (4.3-11.0)
[2018-05-29 06:14] LABS: BUN/CREATININE RATIO 18; CALCIUM 8.1 MG/DL (8.5-10.1); CARBON DIOXIDE 21 MMOL/L (21-32); CHLORIDE 112 MMOL/L (98-107); CREATININE SERUM 0.61 MG/DL (0.60-1.30); GFR ESTIMATED > 60; GLUCOSE 106 MG/DL (70-105); POTASSIUM 4.4 MMOL/L (3.6-5.0); SODIUM 138 MMOL/L (135-145)
[2018-05-29 08:00] VITALS: BP 142/96
[2018-05-29] MEDS: PANTOPRAZOLE 40 MG/10 ML (PROTONIX) VIAL IV SCH (08:05)
--- NOTE | 2018-05-29 13:28 | Discharge Summary ---
Diagnosis/Chief Complaint Date of Admission May 27, 2018 at 13:53 Date of Discharge 05/29/2018 Admission Diagnosis Admission Diagnosis Severe Sepsis 2/2 UTI/PNA UTI Bilateral Pneumonia Dehydration Dementia Normocytic Anemia Chronic Loss of Vision Discharge Diagnosis See Above Chief Complaint/HPI Chief Complaint/HPI 83-year-old male admitted to [facility] notified me of patient having a fever and vomiting this morning. He was taken to [facility] emergency department where he was evaluated. Apparently patient prior to ED was noted to repeatedly help. He was uncooperative and combative. He denied any pain. He is with dementia and not a very good historian. Discharge Summary-Simple/Stand Consultations Discharge Physical Examination Allergies: Coded Allergies: No Known Drug Allergies (Verified , 02/26/09) Vitals & I&Os Vital Sign - Last 12Hours Date Time Temp Pulse Resp B/P (MAP) Pulse Ox O2 Delivery O2 Flow Rate FiO2 05/29/18 08:00 Room Air 05/29/18 08:00 98.0 98 22 142/96 (111) 97 Intake and Output 05/29/18 00:00 Intake Total 2007 ml Output Total 2500 ml Balance -493 ml General Appearance: Alert, Oriented X3, No Acute Distress HEENT: Mucous Memb Moist/Ina Respiratory: Clear to Auscultation, Normal Air Movement Cardiovascular: Regular Rate, No Murmurs Abdominal: Normal Bowel Sounds, Soft, No Tenderness, No Masses Extremities: No Tenderness/Swelling, Other (Left AKA) Skin: No Rashes Neuro: Normal Speech Hospital Course See final discharge diagnosis. Radiology Reviewed NAME: KIM JOLLY [facility] REC#: [id number] PT STATUS: REG ER : 1935 PHYSICIAN: BAM MALIN DO ADMIT DATE: 05/27/18/ER Signed Date of Exam: 05/27/18 CHEST 1 VIEW, AP/PA ONLY INDICATION: Fever COMPARISON: None. FINDINGS: Single view of the chest demonstrates infiltrate in the left lung base. Questionable developing infiltrate is seen in the right base. There was no pneumothorax or large effusion. The heart is normal. Osseous structures are age-appropriate. IMPRESSION: Infiltrate left lung base, questionable developing infiltrate right lung base. Followup recommended. Dictated by: Dictated on workstation # [id number] Dict: 05/27/18 1316 Trans: 05/27/18 1341 Interpreted by: JOSE TAVAREZ Electronically signed by: JOSE TAVAREZ 05/27/18 1341 Discussion & Recommendations 83 yo M that presented to ER in Severe Sepsis Severe Sepsis 2/2 UTI/PNA: Patient was started on broad spectrum antibiotics and had improvement. He was started on IVFs based on body weight and is taking good PO. Patient is back to his baseline mental status and states that he is feeling better and ready to go back to [place]. Patient was sent home to complete course of PO antibiotics to cover both urine and lung sources. UTI: See Above Bilateral Pneumonia: See Above Dehydration: Lab improvement and improved PO intake. Dementia: At baseline Normocytic Anemia: Likely 2/2 Chronic disease. No signs of acute bleeding. Chronic Loss of Vision [facility] [place] and will have close follow up with Ifrah Mark. Discharge Instructions to patient/family Please see electronic discharge instructions given to patient. Discharge Medications Reviewed and agree with Discharge Medication list on patient's Discharge Instruction sheet Clinical Quality Measures DVT/VTE Risk/Contraindication: Risk Factor Score Per Nursin RFS Level Per Nursing on Admit: 4+=Very High Sepsis: Within 3hrs of presentation: Admin fluids, Admin 30ml/kg IBW due to BMI>30, Admin ABX, Blood cultures prior to ABX's, Focus exam, Lactate level Copy Copies To 1: Ifrah FOX HOLLY R MD May 29, 2018 13:28
[2018-05-29] MEDS ORDERED: CEFD300C3 PO (13:38)
--- NOTE | 2018-05-29 13:48 | Discharge Inst-Skilled Nursing ---
Discharge Inst-Skilled NF Patient Instructions Patient Problems: Sepsis UTI Resolved Bilateral Pneumonia Dementia Goal: - Complete antiboitics Consult/Follow Up/Orders Follow up appt.: Ifrah will see you in the [place] Skilled NF Admit to: [facility] Certifications SNF I certify that SNF services are required to be given on an inpatient basis because of the above named patient's need for [facility] care on a continuing basis for the conditions(s) for which he/she was receiving inpatient hospital services prior to his/her transfer to the SNF. Prison Facility Order: Nursing Services, Other (Continue previous orders) Discharge Diet: Soft Diet Daily Activity as Tolerated: Yes New & Resume Previous Orders New & Resume Previous Orders Resume previous orders Pneu Vac Indicated: Yes Discharge Medications New, Converted or Re-Newed RX: RX on Chart New Medications: Cefdinir (Cefdinir) 300 Mg Capsule 300 MG PO BID for 7 Days, #14 CAP Continued Medications: Arginine/Ascorbate Sod/Zuly AC (Arginaid Powder) 1 Each Powd.pack 1 PACKET PO BID, EACH Bisacodyl (Dulcolax) 10 Mg Supp.rect 10 MG RC DAILY PRN for CONSTIPATION-3RD LINE use if MOM is non effective Brimonidine Tartrate (Brimonidine Tartrate) 5 Ml Btl 1 DROP OS BID Dextran 70/Hypromellose (Artificial Tears) 1 Each Droperette 1 EACH OS TID, DROP Dorzolamide HCl (Dorzolamide HCl) 10 Ml Drops 1 DROP OU BID Escitalopram Oxalate (Escitalopram Oxalate) 10 Mg Tablet 10 MG PO DAILY Ibuprofen (Ibuprofen) 200 Mg Tablet 200 MG PO DAILY, TAB Latanoprost (Latanoprost) 2.5 Ml Drops 1 DROP OS HS Magnesium Hydroxide (Milk of Magnesia) 400 Mg/5 Ml Oral.susp 400 MG PO Q12H PRN for CONSTIPATION-2ND LINE Mirtazapine (Mirtazapine) 15 Mg Tablet 15 MG PO DAILY Multivitamin (Multi-Vitamin Daily) 1 Each Tablet 1 EACH PO DAILY, TAB Na Phos,M-B/Na Phos,Di-Ba (Fleet Enema) 133 Ml Enema 1 EACH RC Q30M PRN for CONSTIPATION-1ST LINE repeat in 30 mins if no results. do not exceed 2 doses in 24 hrs. Polyethylene Glycol 3350 (Miralax) 17 Gm Powd.pack 17 GM PO DAILY, EACH Ranitidine Hcl (Zantac 150 Mg) 150 Mg Tablet 150 MG PO DAILY Timolol Maleate (Timolol Maleate 0.5%) 5 Ml Drops 1 DROP OU BID Discontinued Medications: Cyproheptadine HCl (Cyproheptadine HCl) 4 Mg Tablet 6 MG PO QID TAKE 1 AND 1/2 (4 MG) TABLETS FOUR TIMES DAILY Gurjit Estrella May 29, 2018 13:44 GURJIT ESTRELLA MD May 29, 2018 13:48
[2018-05-29] MEDS: cefTRIAXone 1 GM/NS 50 ML IVPB IV SCH ×2 (14:16)
[2018-05-29] MEDS ORDERED: LEVOFLOXACIN 750 MG/D5W 150 ML PRE-MIX IV SCH (16:00)
[2018-05-29 16:01] VITALS: BP 142/96
== END 2018-05-29 16:03 | DRG 871 ==
LOC: EDUNIT# 12:32 → ER 12:33 → 4TH 13:53
PROVIDERS: ADMIT Family Medicine; ATTEND Family Medicine
DX: A41.9 Sepsis, unspecified organism (principal); J18.9 Pneumonia, unspecified organism; N39.0 Urinary tract infection, site not specified; E86.0 Dehydration; D64.9 Anemia, unspecified; R45.1 Restlessness and agitation; I10 Essential (primary) hypertension; F03.90 Unspecified dementia, unspecified severity, without behavioral disturbance, psychotic disturbance, mood disturbance, and anxiety; K59.09 Other constipation; H54.3 Unqualified visual loss, both eyes; Q85.00 Neurofibromatosis, unspecified; Z87.891 Personal history of nicotine dependence; Z89.512 Acquired absence of left leg below knee
CPT/HCPCS: 36415; 51702; 71045; 80048; 80053; 81000; 82150; 83605; 83690; 83735; 84443; 84484; 85007; 85025; 85027; 85610; 85730; 87040; 87077; 87088; 93005; 93041; 96361; 96365; 96375; 96376

== ENCOUNTER 2018-09-06 09:04 | Emergency (ER) | payer MEDICARE, OTHER, MEDICAID ==
[~2018-09-06] VITALS: Ht 162.6 cm; Wt 40.8 kg
[~2018-09-06 09:04] MED LIST changes: +ARGI1POW19 PO; +BISA10SU58 RC; +BRIMON0.2 OS; +CEFD300C3 PO; +CYPR4TAB41 PO; +DEXT1DRO7 OS; +DORZ10DR18 OU; +ESCI10TA55 PO; +IBUP-2055 PO; +LATA2.5D5 OS; +MAGN400O7 PO; +MIRT15TA6 PO; +MULT-974 PO; +NA P133E22 RC; +POLY17PO6 PO; +TIMO5DRO5 OU
--- OUTSIDE RECORDS SUMMARY | 2018-09-06 09:09 | XMS REPORT ---
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, 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 83774914 ALLERGIES No Information ENCOUNTERS Encounter Location Date Diagnosis [facility] [address] [place], [place] [id number] May, Sepsis, due to unspecified organism A41.9 [place] [address] [place] [phone] 17 May, 2018 [place] [address] [place] [address] 47953- 6967 15 Apr, 2018 [facility] [address] [place] [id number] 14 Apr, 2018 Anorexia R63.0 ; Irritable behavior R45.4 and 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 [place] [address] [place] [address]1215- 3375 13 Apr, 2018 [place] [address] [place] [id number] [place] [address]2440- 8627 12 Apr, 2018 Anorexia R63.0 [place] [address] [place] [address]33- 2927 07 Apr, 2018 Anorexia R63.0 [facility] [address], [place] [address] Apr, Irritable behavior R45.4 [facility] [address] [address] March, [facility] [address] [place] [id number] [place] [phone] March, Glaucoma of both eyes, unspecified glaucoma type H40.9 [facility] [address] [place] [address] 57489- 4374 Feb, [facility] [address] [place] [id number] [place] [address] [phone]- [phone] Feb, [facility] [address] [place] [id number] [place] [address] 74769- 3769 Feb, [facility] [id number] Feb, 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 ; Anorexia R63.0 ; Irritable behavior R45.4 ; 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 and 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 [facility] [address] [address] Feb, [facility] [address], [place] [address] Jan, [facility] [address] [place] [id number] [place] [address] [id number] Dec, [facility] [id number] Dec, 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 ; 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 and 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, 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 [facility] [id number] Oct, 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 ; 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 and 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, 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 [facility] [id number] [place] [id number] Sep, [facility] [id number] [place] [id number] Aug, [facility] [address] [id number] Aug, Callus of foot L84 [facility] [address] [id number] Jul, Decubitus ulcer of head, stage 2 L89.[address] [facility] [address] [id number] Jun, 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 ; 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 ; Glaucoma of left eye, unspecified glaucoma type H40.9 and 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, 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 IMMUNIZATIONS No Known Immunizations SOCIAL HISTORY Never Assessed REASON FOR VISIT Increase Periactin PLAN OF CARE VITAL SIGNS MEDICATIONS Medication Instructions Dosage Frequency Start Date End Date Duration Status Cyproheptadine HCl 4 MG Orally 4 times a day 2 tablet 6h March, 30 days Active RESULTS No Results PROCEDURES No Known procedures INSTRUCTIONS MEDICATIONS ADMINISTERED No Known Medications MEDICAL (GENERAL) HISTORY Type Description Date Medical History Neurofibromatosis Medical History 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
--- OUTSIDE RECORDS SUMMARY | 2018-09-06 09:09 | XMS REPORT ---
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, 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 14394243 ALLERGIES No Information ENCOUNTERS Encounter Location Date Diagnosis [facility] [address] [place] [id number] May, Sepsis, due to unspecified organism A41.9 [place] [address] [place] [address]- [address] 17 May, 2018 [place] [address] [place] [address] 88873- 8650 15 Apr, 2018 [facility] [address] [id number] 14 Apr, 2018 Anorexia R63.0 ; Irritable behavior R45.4 and 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 [place] [address] [place] [address] 41910- 0708 13 Apr, 2018 [place] [address] [place] [id number] [place] [address] 43228- 2610 12 Apr, 2018 Anorexia R63.0 [place] [address] [place] [address] 85199- 8973 07 Apr, 2018 Anorexia R63.0 [facility] [address] [place] [address] Apr, Irritable behavior R45.4 [facility] [address] [place] [address] March, [facility] [address] [place] [id number] [place] [address] 51081- [address] March, Glaucoma of both eyes, unspecified glaucoma type H40.9 [facility] [address] [place] [address] 67281- 6380 Feb, [facility] [address] [place] [address] [id number] [place] [address] 37706- 5330 Feb, [facility] [address] [place] [address] [id number] [place] [address] 92725- 5291 Feb, [facility] [id number] Feb, 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 ; Anorexia R63.0 ; Irritable behavior R45.4 ; 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 and 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 [facility] [address] [place] [address] Feb, [facility] [address] [place] [address] Jan, [facility] [address] [place] [id number] [place] [id number] Dec, [facility] [id number] Dec, 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 ; 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 and 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, 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 [facility] [id number] Oct, 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 ; 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 and 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, 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 [facility] [id number] [place] [id number] Sep, [facility] [id number] [place] [id number] Aug, [facility] [address] [id number] Aug, Callus of foot L84 [facility] [address] [id number] Jul, Decubitus ulcer of head, stage 2 L89.812 [facility] [address] [id number] Jun, 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 ; 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 ; Glaucoma of left eye, unspecified glaucoma type H40.9 and 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, 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 IMMUNIZATIONS No Known Immunizations SOCIAL HISTORY Never Assessed REASON FOR VISIT hospital follow up PLAN OF CARE Activity Details Follow Up prn Reason: VITAL SIGNS MEDICATIONS Medication Instructions Dosage Frequency Start Date End Date Duration Status Xalatan 0.005 % Ophthalmic Once a day 1 drop into affected eye in the evening 24h 30 days Active Milk of Magnesia 400 MG/5ML Orally 2 times a day 30 ml as needed 12h Active Cefdinir 300 MG Orally every 12 hrs 1 capsule 12h Active MiraLax - Orally Once a day 17gm 24h Active Zantac 150 MG Orally Once a day 1 tablet 24h Active Dorzolamide HCl 2 % Ophthalmic 2 times a day 1 drop into both eyes 12h March, Active Ibuprofen 200 mg Orally Once a day 1 tablet with food or milk 24h Active Flonase 50 MCG/ACT Nasally Once a day 2 sprays in each nostril 24h Active Escitalopram Oxalate 10 MG TAKE ONE TABLET BY MOUTH DAILY IN THE MORNING 30 Active Dulcolax 10 MG Rectal Once a day 1 suppository as needed 24h Active Brimonidine Tartrate 0.2 % 1 DROP IN LEFT EYE TWICE DAILY 37 Active Mirtazapine 15 MG TAKE 1 TABLET BY MOUTH ONCE DAILY 30 Active Fleet Enema 7-19 GM/118ML Rectal every 30 minutes as needed for constipation, not to exceed 2 doses in 24hrs 1 enema Active Idalia 128 2 % Ophthalmic 3 times a day 1 drop into affected eye 8h Active Artificial Tears 1.4 % Ophthalmic 3 times a day 1 drop to left eye 8h Active Arginaid - Orally 2 times a day 1 packet 12h Active Timolol Maleate 0.5 % Ophthalmic twice a day 1 drop into both eyes 12h March, Active Multivitamin Adult - Active Gold Bowden Ultimate Softening - Externally 2 times a day to right foot as directed Sep, 30 days Active RESULTS No Results PROCEDURES Procedure Date Ordered Result Body Site Stable Visit (10 minutes) May 30, 2018 INSTRUCTIONS MEDICATIONS ADMINISTERED No Known Medications MEDICAL (GENERAL) HISTORY Type Description Date Medical History Neurofibromatosis Medical History 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
--- OUTSIDE RECORDS SUMMARY | 2018-09-06 09:09 | XMS REPORT ---
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, 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 [id number] ALLERGIES No Information ENCOUNTERS Encounter Location Date Diagnosis [facility] [address] [place], [place] [id number] May, Sepsis, due to unspecified organism A41.9 [place] [id number] [place] [address] 54221- 4024 17 May, 2018 [place] [address] [place] [address] 15871- 8132 15 Apr, 2018 [facility] [address] [place] [id number] 14 Apr, 2018 Anorexia R63.0 ; Irritable behavior R45.4 and 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 [place] [id number] [place] [address] 69035- 5282 13 Apr, 2018 [place] [address] [place] [id number] [place] [address] 03650- 9651 12 Apr, 2018 Anorexia R63.0 [place] [address] [place] [address] 64644- 4954 07 Apr, 2018 Anorexia R63.0 [facility] [address] [address] Apr, Irritable behavior R45.4 [facility] [address] [address] March, [facility] [address] [id number] [place] [address] 29141- 6987 March, Glaucoma of both eyes, unspecified glaucoma type H40.9 [facility] [address] [place] [address] 99748- 0978 Feb, [facility] [address] [place] [id number] [place] [address] 77577- 7080 Feb, [facility] [address] [id number] [place] [address] 21744- 7994 Feb, [address] [id number] Feb, 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 ; Anorexia R63.0 ; Irritable behavior R45.4 ; 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 and 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 [facility] [address] [address] Feb, [facility] [address] [address] Jan, [facility] [address] [place] [id number] [place] [id number] Dec, [address] [id number] Dec, 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 ; 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 and 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, 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 [address] [id number] Oct, 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 ; 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 and 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, 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 [facility] [id number] [place] [id number] Sep, [facility] [address] [id number] [place] [id number] Aug, [facility] [address] [place] [id number] Aug, Callus of foot L84 [facility] [address] [place] [id number] Jul, Decubitus ulcer of head, stage 2 L89.812 [facility] [address] [place] [id number] Jun, 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 ; 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 ; Glaucoma of left eye, unspecified glaucoma type H40.9 and 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, 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 IMMUNIZATIONS No Known Immunizations SOCIAL HISTORY Never Assessed REASON FOR VISIT Med list update PLAN OF CARE VITAL SIGNS MEDICATIONS Medication Instructions Dosage Frequency Start Date End Date Duration Status Multivitamin Adult - Active Dulcolax 10 MG Rectal Once a day 1 suppository as needed 24h Active Zantac 150 MG Orally Once a day 1 tablet 24h Active Ibuprofen 200 mg Orally Once a day 1 tablet with food or milk 24h Active Milk of Magnesia 400 MG/5ML Orally 2 times a day 30 ml as needed 12h Active Artificial Tears 1.4 % Ophthalmic 3 times a day 1 drop to left eye 8h Active Flonase 50 MCG/ACT Nasally Once a day 2 sprays in each nostril 24h Not-Taking Mirtazapine 15 MG TAKE 1 TABLET BY MOUTH ONCE DAILY 30 Active Lexapro 10 mg Orally Once a day in AM 1 tablet Feb, 30 day(s ) Active MiraLax - Orally Once a day 17gm 24h Active Arginaid - Orally 2 times a day 1 packet 12h Active Xalatan 0.005 % Ophthalmic Once a day 1 drop into affected eye in the evening 24h 30 days Active Escitalopram Oxalate 10 MG TAKE ONE TABLET BY MOUTH DAILY IN THE MORNING 30 Not-Taking Dorzolamide HCl 2 % Ophthalmic 2 times a day 1 drop into both eyes 12h March, Active Fleet Enema 7-19 GM/118ML Rectal every 30 minutes as needed for constipation, not to exceed 2 doses in 24hrs 1 enema Active Gold Bowden Ultimate Softening - Externally 2 times a day to right foot as directed Sep, 30 days Not-Taking Brimonidine Tartrate 0.2 % 1 DROP IN LEFT EYE TWICE DAILY 37 Active Idalia 128 2 % Ophthalmic 3 times a day 1 drop into affected eye 8h Not-Taking Cyproheptadine HCl 4 MG Orally 4 times a day 1.5 tablets 6h March, Active Timolol Maleate 0.5 % Ophthalmic twice a day 1 drop into both eyes 12h March, Not-Taking RESULTS No Results PROCEDURES No Known procedures INSTRUCTIONS MEDICATIONS ADMINISTERED No Known Medications MEDICAL (GENERAL) HISTORY Type Description Date Medical History Neurofibromatosis Medical History 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
--- OUTSIDE RECORDS SUMMARY | 2018-09-06 09:09 | XMS REPORT ---
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, 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 71511290 ALLERGIES No Information ENCOUNTERS Encounter Location Date Diagnosis [facility] [address] [place] [id number] Jul, 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 and 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 [facility] [address] [place] [id number] May, Sepsis, due to unspecified organism A41.9 [place] [address] [place] [address] 08933- 0034 17 May, [address] [place] [address] 84227- 9093 15 Apr, 2018 [facility] [address] [place] [id number] 14 Apr, 2018 Anorexia R63.0 ; Irritable behavior R45.4 and 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 [place] [address] [place] [address] 72319- 6876 13 Apr, 2018 [place] [address] [place] [address] 10803- 5239 Apr, Anorexia R63.0 [facility] [address] [address] 07 Apr, 2018 Anorexia R63.0 [facility] [address] [place] [address] 59480- 6640 Apr, Irritable behavior R45.4 [facility] [address] [address] March, [facility] [address] [place] [address] [id number] [place] [address] 54835- 9214 March, Glaucoma of both eyes, unspecified glaucoma type H40.9 [facility] [address] [place] [address] [id number] [place] [address] 10936- 3679 Feb, [facility] [address] [address] Feb, [facility] [address] [place] [id number] [place] [address] 04295- 3910 Feb, [facility] [address] [place] [id number] Feb, 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 ; Anorexia R63.0 ; Irritable behavior R45.4 ; 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 and 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 [facility] [address] [address] Feb, [facility] [address] [place] [address] 17875- 2587 Jan, [facility] [address] [place] [id number] [place] [id number] Dec, [facility] [address] [place] [id number] Dec, 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 ; 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 and 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, 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 [facility] [address] [place] [id number] Oct, 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 ; 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 and 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, 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 [facility] [facility] [id number] [id number] Sep, [facility] [address] [id number] [id number] Aug, [facility] [address] [place] [id number] Aug, Callus of foot L84 [facility] [address] [place] [id number] Jul, Decubitus ulcer of head, stage 2 L89.812 [facility] [address] [place] [id number] Jun, 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 ; 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 ; Glaucoma of left eye, unspecified glaucoma type H40.9 and 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, 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 IMMUNIZATIONS No Known Immunizations SOCIAL HISTORY Never Assessed REASON FOR VISIT Routine visit PLAN OF CARE Activity Details Follow Up prn Reason: VITAL SIGNS MEDICATIONS Medication Instructions Dosage Frequency Start Date End Date Duration Status Multivitamin Adult - Active Artificial Tears 1.4 % Ophthalmic 3 times a day 1 drop to left eye 8h Active Ibuprofen 200 mg Orally Once a day 1 tablet with food or milk 24h Active Fleet Enema 7-19 GM/118ML Rectal every 30 minutes as needed for constipation, not to exceed 2 doses in 24hrs 1 enema Active Mirtazapine 15 mg Orally Once a day 1 tablet at bedtime 24h Active Dorzolamide HCl 2 % Ophthalmic 2 times a day 1 drop into both eyes March, Active Brimonidine Tartrate 0.2 % 1 DROP IN LEFT EYE TWICE DAILY 37 Active Arginaid - Orally 2 times a day 1 packet 12h Active Timolol Maleate 0.5 % Ophthalmic twice a day 1 drop into both eyes March, Active MiraLax - Orally Once a day 17gm 24h Active Xalatan 0.005 % Ophthalmic Once a day 1 drop into affected eye in the evening 24h 30 Active Zantac 150 MG Orally Once a day 1 tablet 24h Active Milk of Magnesia 400 MG/5ML Orally 2 times a day 30 ml as needed 12h Active Dulcolax 10 MG Rectal Once a day 1 suppository as needed 24h Active Escitalopram Oxalate 10 mg Orally Once a day 1 tablet 24h Active RESULTS No Results PROCEDURES Procedure Date Ordered Result Body Site Stable Visit (10 minutes) Jul 27, 2018 INSTRUCTIONS MEDICATIONS ADMINISTERED No Known Medications MEDICAL (GENERAL) HISTORY Type Description Date Medical History Neurofibromatosis Medical History 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
--- OUTSIDE RECORDS SUMMARY | 2018-09-06 09:09 | XMS REPORT ---
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, 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 37541294 ALLERGIES No Information ENCOUNTERS Encounter Location Date Diagnosis [facility] [address] [place] [id number] May, Sepsis, due to unspecified organism A41.9 [place] [address] [place] [address] 07891- 3498 17 May, 2018 [place] [address] [place] [address] 17466- 9660 15 Apr, 2018 [facility] [address] [place] [id number] 14 Apr, 2018 Anorexia R63.0 ; Irritable behavior R45.4 and 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 [place] [address] [place] [address] 19742- 6123 13 Apr, 2018 [place] [address] [place] [id number] [place] [address] 25754- 4991 12 Apr, 2018 Anorexia R63.0 [place] [address] [place] [address] 62993- 7421 07 Apr, 2018 Anorexia R63.0 [facility] [address] [address] 9[address] Apr, Irritable behavior R45.4 [facility] [address] [address] March, [facility] [address] [place] [id number] [place] [address] 56426- 1364 March, Glaucoma of both eyes, unspecified glaucoma type H40.9 [facility] [address] [place] [address] 02026- 5013 Feb, [facility] [address] [place] [address] [id number] [place] [address] 43138- 2811 Feb, [facility] [address] [place] [address] [id number] [place] [address] 79603- 6515 Feb, [facility] [id number] Feb, 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 IMMUNIZATIONS No Known Immunizations SOCIAL HISTORY Never Assessed REASON FOR VISIT Refill request PLAN OF CARE VITAL SIGNS MEDICATIONS Medication Instructions Dosage Frequency Start Date End Date Duration Status Lexapro 10 mg Orally Once a day in AM 1 tablet Feb, 30 day(s ) Active RESULTS No Results PROCEDURES No Known procedures INSTRUCTIONS MEDICATIONS ADMINISTERED No Known Medications MEDICAL (GENERAL) HISTORY Type Description Date Medical History Neurofibromatosis Medical History 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
--- OUTSIDE RECORDS SUMMARY | 2018-09-06 09:10 | XMS REPORT ---
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, 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 33972919 ALLERGIES No Information ENCOUNTERS Encounter Location Date Diagnosis [facility] [address] [place] [phone] May, Sepsis, due to unspecified organism A41.9 [place] [address] [place] [address] 36918- 2048 17 May, 2018 [place] [address] [place] [address] 39453- 5163 15 Apr, 2018 [facility] [address] [place] [id number] 14 Apr, 2018 Anorexia R63.0 ; Irritable behavior R45.4 and 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 [place] [address] [place] [address] 55352- 7781 13 Apr, 2018 [place] [address] [place] [id number] [place] [address] 52270- 1617 12 Apr, 2018 Anorexia R63.0 [place] [address] [place] [address] 93705- 7262 07 Apr, 2018 Anorexia R63.0 [facility] [address], [place] [address] Apr, Irritable behavior R45.4 [facility] [address], [place] [address] March, [facility] [address] [place] [id number] [place] [address] 34510- 4725 March, Glaucoma of both eyes, unspecified glaucoma type H40.9 [facility] [address] [place] [address] 06268- 4620 Feb, [facility] [address] [id number] [place] [address] 41038- 5314 Feb, [facility] [address] [id number] [place] [address] 84046- 1996 Feb, [address] [id number] Feb, 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 ; Anorexia R63.0 ; Irritable behavior R45.4 ; 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 and 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 [facility] [address], [place] [address] 2772 Feb, [facility] [address], [place] [address] 4782 Jan, [facility] [id number] [place] [id number] Dec, [address] [id number] Dec, 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 IMMUNIZATIONS No Known Immunizations SOCIAL HISTORY Never Assessed REASON FOR VISIT Routine visit PLAN OF CARE Activity Details Follow Up prn Reason: VITAL SIGNS MEDICATIONS Medication Instructions Dosage Frequency Start Date End Date Duration Status MiraLax - Orally Once a day 17gm 24h Active Ibuprofen 200 mg Orally Once a day 1 tablet with food or milk 24h Active Dorzolamide HCl 2 % Ophthalmic 2 times a day 1 drop into both eyes 12h March, Active Arginaid - Orally 2 times a day 1 packet 12h Active Zantac 150 MG Orally Once a day 1 tablet 24h Active Brimonidine Tartrate 0.2 % 1 DROP IN LEFT EYE TWICE DAILY 37 Active Fleet Enema 7-19 GM/118ML Rectal every 30 minutes as needed for constipation, not to exceed 2 doses in 24hrs 1 enema Active Idalia 128 2 % Ophthalmic 3 times a day 1 drop into affected eye 8h Not-Taking Flonase 50 MCG/ACT Nasally Once a day 2 sprays in each nostril 24h Not-Taking Mirtazapine 15 MG TAKE 1 TABLET BY MOUTH ONCE DAILY 30 Active Timolol Maleate 0.5 % Ophthalmic twice a day 1 drop into both eyes 12h March, Active Lexapro 10 mg Orally Once a day in AM 1 tablet Feb, 30 day(s ) Active Milk of Magnesia 400 MG/5ML Orally 2 times a day 30 ml as needed 12h Active Escitalopram Oxalate 10 MG TAKE ONE TABLET BY MOUTH DAILY IN THE MORNING 30 Active Xalatan 0.005 % Ophthalmic Once a day 1 drop into affected eye in the evening 24h 30 days Active Artificial Tears 1.4 % Ophthalmic 3 times a day 1 drop to left eye 8h Active Gold Bowden Ultimate Softening - Externally 2 times a day to right foot as directed Sep, 30 days Not-Taking Multivitamin Adult - Active Cyproheptadine HCl 4 MG Orally 4 times a day 1.5 tablets 6h March, Active RESULTS No Results PROCEDURES Procedure Date Ordered Result Body Site Minor complication (15 mins) April 27, 2018 INSTRUCTIONS MEDICATIONS ADMINISTERED No Known Medications MEDICAL (GENERAL) HISTORY Type Description Date Medical History Neurofibromatosis Medical History 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
--- OUTSIDE RECORDS SUMMARY | 2018-09-06 09:10 | XMS REPORT ---
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, 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 23656034 ALLERGIES No Information ENCOUNTERS Encounter Location Date Diagnosis [facility] [address] [place] [id number] May, Sepsis, due to unspecified organism A41.9 [place] [address] [place] [address] 81828- 5292 17 May, 2018 [place] [address] [place] [address] 82183- 6252 15 Apr, 2018 [facility] [address] [place] [id number] 14 Apr, 2018 Anorexia R63.0 ; Irritable behavior R45.4 and 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 [place] [address] [place] [address] 62605- 5431 13 Apr, 2018 [place] [address] [place] [id number] [place] [address] 12647- 3845 12 Apr, 2018 Anorexia R63.0 [place] [address] [place] [address] 98183- 1441 07 Apr, 2018 Anorexia R63.0 [facility] [address] [address] Apr, Irritable behavior R45.4 [facility] [address] [address] March, [facility] [id number] [place] [address] 78130- 0387 March, Glaucoma of both eyes, unspecified glaucoma type H40.9 [facility] [address] [place] [address] 85783- 5071 Feb, [facility] [address] [id number] [place] [address] 19283- 3874 Feb, [facility] [id number] [place] [address] 70836- 7469 Feb, [address] [id number] Feb, 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 ; Anorexia R63.0 ; Irritable behavior R45.4 ; 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 and 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 [facility] [address] [address] Feb, [facility] [address] [address] 5[address] Jan, [facility] [address] [place] [id number] [place] [id number] Dec, [address] [id number] Dec, 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 ; 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 and 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, 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 [address] [id number] Oct, 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 ; 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 and 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, 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 [facility] [id number] [place] [address] Sep, [facility] [id number] [place] [id number] Aug, [facility] [address] [place] [id number] Aug, Callus of foot L[address] [id number] Jul, Decubitus ulcer of head, stage 2 L89.812 [facility] [place] [address] [place] [id number] Jun, 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 ; 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 ; Glaucoma of left eye, unspecified glaucoma type H40.9 and 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
--- OUTSIDE RECORDS SUMMARY | 2018-09-06 09:10 | XMS REPORT ---
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, 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 60667509 ALLERGIES No Information ENCOUNTERS Encounter Location Date Diagnosis [facility] [place] [address] [place] [id number] May, Sepsis, due to unspecified organism A41.9 [place] [address] [place] [address] 64169- 6728 17 May, 2018 [place] [address] [place] [address] 91577- 6900 15 Apr, 2018 [facility] [place] [address] [place] [id number] 14 Apr, 2018 Anorexia R63.0 ; Irritable behavior R45.4 and 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 [place] [address] [place] [address] 76685- 8218 13 Apr, 2018 [place] [address] [place] [id number] [place] [address] 41770- 9563 12 Apr, 2018 Anorexia R63.0 [place] [address] [place] [address] 07813- 6902 07 Apr, 2018 Anorexia R63.0 [facility] [address] [address] Apr, Irritable behavior R45.4 [facility] [address] [address] March, [facility] [address] [id number] [place] [address] 22075- 0652 March, Glaucoma of both eyes, unspecified glaucoma type H40.9 [facility] [address] [place] [address] 52330- 8110 Feb, [facility] [address] [place] [id number] [place] [address] 41759- 6353 Feb, [facility] [address] [id number] [place] [address] 39010- 2437 Feb, [address] [id number] Feb, 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 ; Anorexia R63.0 ; Irritable behavior R45.4 ; 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 and 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 [facility] [address], [place] [address] 3603 Feb, [facility] [address] [address] 5460 Jan, [facility] [address] [place] [id number] [place] [id number] Dec, [address] [id number] Dec, 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 ; 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 and 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, 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 [address] [id number] Oct, 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 ; 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 and 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, 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 [facility] [id number] [place] [id number] Sep, [facility] [address] [id number] [place] [id number] Aug, [facility] [place] [address] [place] [address] Aug, Callus of foot L84 [facility] [place] [address] [place] [id number] Jul, Decubitus ulcer of head, stage 2 L89.812 [facility] [place] [address] [place] [id number] Jun, 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 ; 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 ; Glaucoma of left eye, unspecified glaucoma type H40.9 and 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, 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 IMMUNIZATIONS No Known Immunizations SOCIAL HISTORY Never Assessed REASON FOR VISIT Long-Term PLAN OF CARE Activity Details Follow Up prn Reason: VITAL SIGNS MEDICATIONS Medication Instructions Dosage Frequency Start Date End Date Duration Status Milk of Magnesia 400 MG/5ML Orally 2 times a day 30 ml as needed 12h Active Dorzolamide HCl-Timolol Mal 22.3-6.8 MG/ML Ophthalmic Twice a day 1 drop into affected eye 12h 30 days Active Fleet Enema 7-19 GM/118ML Rectal every 30 minutes as needed for constipation, not to exceed 2 doses in 24hrs 1 enema Active Ibuprofen 200 mg Orally Once a day 1 tablet with food or milk 24h Active Xalatan 0.005 % Ophthalmic Once a day 1 drop into affected eye in the evening 24h 30 days Active MiraLax - Orally Once a day 17gm 24h Active Brimonidine Tartrate 0.2 % 1 DROP IN LEFT EYE TWICE DAILY 37 Active Arginaid - Orally 2 times a day 1 packet 12h Active Multivitamin Adult - Active Zantac 150 MG Orally Once a day 1 tablet 24h Active Flonase 50 MCG/ACT Nasally Once a day 2 sprays in each nostril 24h Not-Taking Lexapro 10 mg Orally Once a day in AM 1 tablet Feb, 30 day(s ) Active Gold Bowden Ultimate Softening - Externally 2 times a day to right foot as directed Sep, 30 days Not-Taking Artificial Tears 1.4 % Ophthalmic 3 times a day 1 drop to left eye 8h Active Idalia 128 2 % Ophthalmic 3 times a day 1 drop into affected eye 8h Not-Taking Mirtazapine 15 MG TAKE 1 TABLET BY MOUTH ONCE DAILY 30 Active RESULTS No Results PROCEDURES Procedure Date Ordered Result Body Site Minor complication (15 mins) February 16, 2018 INSTRUCTIONS MEDICATIONS ADMINISTERED No Known Medications MEDICAL (GENERAL) HISTORY Type Description Date Medical History Neurofibromatosis Medical History 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
--- OUTSIDE RECORDS SUMMARY | 2018-09-06 09:10 | XMS REPORT ---
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, 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 32322670 ALLERGIES No Information ENCOUNTERS Encounter Location Date Diagnosis [facility] [address] [place] [id number] May, Sepsis, due to unspecified organism A41.9 [place] [address] [place] [address] 50966- 1264 17 May, 2018 [place] [address] [place] [address] 10729- 4028 15 Apr, 2018 [facility] [address] [place] [id number] 14 Apr, 2018 Anorexia R63.0 ; Irritable behavior R45.4 and 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 [place] [address] [place] [address] 32948- 9417 13 Apr, 2018 [place] [address] [place] [id number] [place] [address] 04236- 6627 12 Apr, 2018 Anorexia R63.0 [place] [address] [place] [address] 16426- 7377 07 Apr, 2018 Anorexia R63.0 [facility] [address], [place] [address] 8[address] Apr, Irritable behavior R45.4 [facility] [address], [place] [address] March, [facility] [address] [address] [id number] [place] [address] 68544- 3369 March, Glaucoma of both eyes, unspecified glaucoma type H40.9 [facility] [address] [place] [address] 25772- 5500 Feb, [facility] [address] [place] [address] [id number] [place] [address] 10706- 0224 Feb, [facility] [address] [place] [address] [id number] [place] [address] 79685- 4700 Feb, [facility] [id number] Feb, 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 ; Anorexia R63.0 ; Irritable behavior R45.4 ; 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 and 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 [facility] [address], [place] [address] 5498 Feb, [facility] [address], [place] [address]- 1780 Jan, [facility] [address] [place] [id number] [place] [id number] Dec, [address] [id number] Dec, 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 ; 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 and 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, 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 [address] [id number] Oct, 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 ; 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 and 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, 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 [facility] [id number] [place] [id number] Sep, [facility] [place] [facility] [address] [id number] [place] [id number] Aug, [facility] [address] [place] [id number] Aug, Callus of foot L[address] [id number] Jul, Decubitus ulcer of head, stage 2 L89.[address] [facility] [address] [id number] Jun, 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 ; 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 ; Glaucoma of left eye, unspecified glaucoma type H40.9 and 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, 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 IMMUNIZATIONS No Known Immunizations SOCIAL HISTORY Never Assessed REASON FOR VISIT Waiting for call back PLAN OF CARE VITAL SIGNS MEDICATIONS Medication Instructions Dosage Frequency Start Date End Date Duration Status Cyproheptadine HCl 4 MG Orally 4 times a day 1.5 tablets 6h March, Active RESULTS No Results PROCEDURES No Known procedures INSTRUCTIONS MEDICATIONS ADMINISTERED No Known Medications MEDICAL (GENERAL) HISTORY Type Description Date Medical History Neurofibromatosis Medical History 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
--- OUTSIDE RECORDS SUMMARY | 2018-09-06 09:10 | XMS REPORT ---
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 437352261 Problem 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, 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 01739860 ALLERGIES No Information ENCOUNTERS Encounter Location Date Diagnosis [facility] [address] [place] [id number] May, Sepsis, due to unspecified organism A41.9 [place] [address] [place] [address] 83059- 4137 17 May, 2018 [place] [address] [place] [address] 47826- 4184 15 Apr, 2018 [facility] [address] [place] [id number] 14 Apr, 2018 Anorexia R63.0 ; Irritable behavior R45.4 and 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 [place] [address] [place] [address] 72768- 2176 13 Apr, 2018 [place] [address] [place] [id number] [place] [address] 38049- 5162 12 Apr, 2018 Anorexia R63.0 [place] [address] [place] [address] 73136- 7331 07 Apr, 2018 Anorexia R63.0 [facility] [address], [place] [address]- 95[address] Apr, Irritable behavior R45.4 [facility] [address], [place] [address] 3098 March, [facility] [address] [place] [id number] [place] [address] 02137- 0168 March, Glaucoma of both eyes, unspecified glaucoma type H40.9 [facility] [address] [place] [address] 29866- 3092 Feb, [facility] [address] [id number] [place] [address] 06100- 7542 Feb, [facility] [address] [id number] [place] [address] 23693- 0257 Feb, [facility] [id number] Feb, 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 ; Anorexia R63.0 ; Irritable behavior R45.4 ; 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 and 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 [facility] [address], [place] [address]- 9787 Feb, [facility] [address], [place] [address] 5672 Jan, [facility] [address] [id number] [place] [address] [id number] Dec, [address] [id number] Dec, 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 ; 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 and 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, 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 [address] [id number] Oct, 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 ; 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 and 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, 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 [facility] [id number] [place] [id number] Sep, [facility] [place] [facility] [address] [id number] [place] [id number] Aug, [facility] [address] [place] [id number] Aug, Callus of foot L84 [facility] [place] [address] [place] [id number] Jul, Decubitus ulcer of head, stage 2 L89.812 [facility] [place] [address] [place] [id number] Jun, 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 ; 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 ; Glaucoma of left eye, unspecified glaucoma type H40.9 and 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, 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 IMMUNIZATIONS No Known Immunizations SOCIAL HISTORY Never Assessed REASON FOR VISIT Rx for Periactin PLAN OF CARE VITAL SIGNS MEDICATIONS Medication Instructions Dosage Frequency Start Date End Date Duration Status Cyproheptadine HCl 4 MG Orally qid X 5days, then 1 tab qid X 5 days then 1 1/ 2 tabs qid 1/2 tablet March, 10 days Active RESULTS No Results PROCEDURES No Known procedures INSTRUCTIONS MEDICATIONS ADMINISTERED No Known Medications MEDICAL (GENERAL) HISTORY Type Description Date Medical History Neurofibromatosis Medical History 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
--- OUTSIDE RECORDS SUMMARY | 2018-09-06 09:10 | XMS REPORT ---
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, 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 50369661 ALLERGIES No Information ENCOUNTERS Encounter Location Date Diagnosis [facility] [address] [place] [id number] May, Sepsis, due to unspecified organism A41.9 [place] [address] [place] [address] 04837- 0602 17 May, 2018 [place] [address] [place] [address] 50644- 3482 15 Apr, 2018 [facility] [address] [place] [id number] 14 Apr, 2018 Anorexia R63.0 ; Irritable behavior R45.4 and 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 [place] [address] [place] [address] 81770- 2361 13 Apr, 2018 [place] [address] [place] [id number] [place] [address] 61479- 4648 12 Apr, 2018 Anorexia R63.0 [place] [address] [place] [address] 19200- 1540 07 Apr, 2018 Anorexia R63.0 [facility] [address] [address]- 0102 Apr, Irritable behavior R45.4 [facility] [address] [address]- 84[address] March, [facility] [id number] [place] [address] 97531- 1640 March, Glaucoma of both eyes, unspecified glaucoma type H40.9 [facility] [address] [place] [address] 19177- 8976 Feb, [facility] [id number] [place] [address] 12256- 0546 Feb, [facility] [id number] [place] [address] 38175- 3975 Feb, [address] [id number] Feb, 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 ; Anorexia R63.0 ; Irritable behavior R45.4 ; 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 and 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 [facility] [address] [address]- 0049 Feb, [facility] [address] [address]- 1330 Jan, [facility] [id number] [place] [address] [id number] Dec, [address] [id number] Dec, 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 ; 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 and 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, 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 [address] [id number] Oct, 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 ; 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 and 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, 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 [facility] [id number] [place] [id number] Sep, [facility] [place] [facility] [address] [place] [id number] [place] [id number] Aug, [facility] [address] [place] [id number] Aug, Callus of foot L[address] [id number] Jul, Decubitus ulcer of head, stage 2 L89.812 [facility] [place] [address] [place] [id number] Jun, 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 ; 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 ; Glaucoma of left eye, unspecified glaucoma type H40.9 and 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
--- OUTSIDE RECORDS SUMMARY | 2018-09-06 09:10 | XMS REPORT ---
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, 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 68837340 ALLERGIES No Information ENCOUNTERS Encounter Location Date Diagnosis [facility] [address] [place] [id number] May, Sepsis, due to unspecified organism A41.9 [place] [address] [place] [address] 38868- 1453 17 May, 2018 [place] [address] [place] [address] 73204- 1400 15 Apr, 2018 [facility] [address] [id number] 14 Apr, 2018 Anorexia R63.0 ; Irritable behavior R45.4 and 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 [place] [address] [place] [address] 16846- 3171 13 Apr, 2018 [place] [address] [place] [id number] [place] [address] 15813- 6153 12 Apr, 2018 Anorexia R63.0 [place] [address] [place] [address] 06274- 6571 07 Apr, 2018 Anorexia R63.0 [facility] [address] [address] Apr, Irritable behavior R45.4 [facility] [address] [address] March, [facility] [id number] [place] [address] 89927- 8288 March, Glaucoma of both eyes, unspecified glaucoma type H40.9 [facility] [address] [place] [address] 62460- 2033 Feb, [facility] [id number] [place] [address] 77273- 9064 Feb, [facility] [id number] [place] [address] 04157- 1206 Feb, [facility] [id number] Feb, 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 ; Anorexia R63.0 ; Irritable behavior R45.4 ; 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 and 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 [facility] [address] [address] Feb, [facility] [address] [address] 3[address] Jan, [facility] [address] [id number] [place] [id number] Dec, [facility] [id number] Dec, 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 ; 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 and 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, 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 [facility] [id number] Oct, 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 ; 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 and 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, 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 [facility] [id number] [place] [id number] Sep, [facility] [address] [id number] [place] [id number] Aug, [facility] [address] [place] [id number] Aug, Callus of foot L84 [address] [id number] Jul, Decubitus ulcer of head, stage 2 L89.812 [facility] [address] [place] [id number] Jun, 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 ; 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 ; Glaucoma of left eye, unspecified glaucoma type H40.9 and 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
--- OUTSIDE RECORDS SUMMARY | 2018-09-06 09:11 | XMS REPORT ---
Author Author LALI DIXON Organization 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 [address] [place] [address] 39285- 9868 12 Apr, 2018 Anorexia R63.0 [place] [address] [place] [id number] [place] [address] 72630- 8901 07 Apr, [address] [facility] [address] [id number] [place] [address] 79390- 5326 06 Apr, 2018 Irritable behavior R45.4 [place] [address] [place] [id number] [place] [address] 04412- [address]00 March, [facility] [address] [place] [id number] [address] March, Glaucoma of both eyes, unspecified glaucoma type H40.9 [facility] [address] [place] [address] [id number] [address] Feb, [facility] [address] [address] Feb, 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 [address] [address] Feb, 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 [facility] [id number] [place] [id number] Sep, [facility] [id number] [address] Aug, [facility] [address] [id number] Aug, Callus of foot L84 [facility] [address] [place] [id number] Jul, Decubitus ulcer of head, stage 2 L89.[address] [facility] [address] [id number] Jun, 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 ; 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 ; Glaucoma of left eye, unspecified glaucoma type H40.9 and 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, 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 IMMUNIZATIONS No Known Immunizations SOCIAL HISTORY Never Assessed REASON FOR VISIT Routine Visit PLAN OF CARE Activity Details Follow Up prn Reason: VITAL SIGNS MEDICATIONS Medication Instructions Dosage Frequency Start Date End Date Duration Status Fleet Enema 7-19 GM/118ML Rectal every 30 minutes as needed for constipation, not to exceed 2 doses in 24hrs 1 enema Active Idalia 128 2 % Ophthalmic 3 times a day 1 drop into affected eye 8h Active Ibuprofen 200 mg Orally Once a day 1 tablet with food or milk 24h Active Flonase 50 MCG/ACT Nasally Once a day 2 sprays in each nostril 24h Active Remeron 15 MG Orally Once a day 1 tablet at bedtime 24h Active Gold Bowden Ultimate Softening - Externally 2 times a day to right foot as directed Sep, 30 days Active Brimonidine Tartrate 0.2 % 1 DROP IN LEFT EYE TWICE DAILY 37 Active Zantac 150 MG Orally Once a day 1 tablet 24h Active Multivitamin Adult - Active Milk of Magnesia 400 MG/5ML Orally 2 times a day 30 ml as needed 12h Active Dorzolamide HCl-Timolol Mal 22.3-6.8 MG/ML Ophthalmic Twice a day 1 drop into affected eye 12h 30 days Active Lutein 6 MG Orally Once a day 1 capsule with a meal 24h Active Mirtazapine 15 MG TAKE 1 TABLET BY MOUTH ONCE DAILY 30 Active Xalatan 0.005 % Ophthalmic Once a day 1 drop into affected eye in the evening 24h 30 days Active RESULTS No Results PROCEDURES Procedure Date Ordered Result Body Site Stable Visit (10 minutes) Oct 25, 2017 INSTRUCTIONS MEDICATIONS ADMINISTERED No Known Medications MEDICAL (GENERAL) HISTORY Type Description Date Medical History Neurofibromatosis Medical History 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
--- OUTSIDE RECORDS SUMMARY | 2018-09-06 09:11 | XMS REPORT ---
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, 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 63535076 ALLERGIES No Information ENCOUNTERS Encounter Location Date Diagnosis [facility] [address] [place] [id number] May, Sepsis, due to unspecified organism A41.9 [place] [address] [place] [address] 08243- 3933 17 May, 2018 [place] [address] [place] [address] 46032- 4859 15 Apr, 2018 [facility] [address] [place] [id number] 14 Apr, 2018 Anorexia R63.0 ; Irritable behavior R45.4 and 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 [place] [address] [place] [address] 81587- 5569 13 Apr, 2018 [place] [address] [place] [id number] [place] [address] 96441- 0365 12 Apr, 2018 Anorexia R63.0 [place] [address] [place] [address] 38486- 0633 07 Apr, 2018 Anorexia R63.0 [facility] [address], [place] [address] Apr, Irritable behavior R45.4 [facility] [address], [place] [address] March, [facility] [address] [id number] [place] [address] 01463- 2837 March, Glaucoma of both eyes, unspecified glaucoma type H40.9 [facility] [address] [place] [address] 65049- 9849 Feb, [facility] [address] [place] [id number] [place] [address] 48068- 6031 Feb, [facility] [address] [place] [id number] [place] [address] 84433- 8826 Feb, [facility] [id number] Feb, 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 ; Anorexia R63.0 ; Irritable behavior R45.4 ; 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 and 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 [facility] [address], [place] [address] 8098 Feb, [facility] [address], [place] [address] Jan, [facility] [address] [place] [id number] [place] [id number] Dec, [facility] [id number] Dec, 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 ; 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 and 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, 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 [facility] [id number] Oct, 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 ; 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 and 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, 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 [facility] [id number] [place] [id number] Sep, [facility] [address] [place] [id number] [place] [id number] Aug, [facility] [address] [place] [address] Aug, Callus of foot L[address] [id number] Jul, Decubitus ulcer of head, stage 2 L89.812 [facility] [address] [address] Jun, 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 ; 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 ; Glaucoma of left eye, unspecified glaucoma type H40.9 and 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
--- OUTSIDE RECORDS SUMMARY | 2018-09-06 09:11 | XMS REPORT ---
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, 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 36381260 ALLERGIES No Information ENCOUNTERS Encounter Location Date Diagnosis [facility] [address] [place] [id number] May, Sepsis, due to unspecified organism A41.9 [place] [address] [place] [address] 18482- 0820 17 May, 2018 [place] [address] [place] [address] 34623- 5413 15 Apr, 2018 [facility] [address] [place] [id number] 14 Apr, 2018 Anorexia R63.0 ; Irritable behavior R45.4 and 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 [place] [address] [place] [address] 13750- 9030 13 Apr, 2018 [place] [address] [place] [id number] [place] [address] 94553- 5464 12 Apr, 2018 Anorexia R63.0 [place] [address] [place] [address] 65662- 2344 07 Apr, 2018 Anorexia R63.0 [facility] [address], [place] [address] 5213 Apr, Irritable behavior R45.4 [facility] [address], [place] [address]- 1064 March, [facility] [id number] [place] [address] 87301- 1119 March, Glaucoma of both eyes, unspecified glaucoma type H40.9 [facility] [address] [place] [address] 60513- 2070 Feb, [facility] [id number] [place] [address] 02774- 1437 Feb, [facility] [address] [id number] [place] [address] 25511- 9653 Feb, [facility] [id number] Feb, 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 ; Anorexia R63.0 ; Irritable behavior R45.4 ; 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 and 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 [facility] [address], [place] [address] 8973 Feb, [facility] [address], [place] [address] 0[address] Jan, [facility] [address] [id number] [place] [address] [id number] Dec, [facility] [id number] Dec, 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 ; 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 and 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, 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 [facility] [id number] Oct, 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 ; 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 and 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, 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 [facility] [id number] [place] [id number] Sep, [facility] [address] [place] [id number] [place] [id number] Aug, [facility] [address] [place] [id number] Aug, Callus of foot L[address] [id number] Jul, Decubitus ulcer of head, stage 2 L89.812 [facility] [address] [place] [id number] Jun, 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 ; 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 ; Glaucoma of left eye, unspecified glaucoma type H40.9 and 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
--- OUTSIDE RECORDS SUMMARY | 2018-09-06 09:11 | XMS REPORT ---
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, 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 60279271 ALLERGIES No Information ENCOUNTERS Encounter Location Date Diagnosis [place] [address] [address] [id number] [place] [address] 87466- 1807 March, Glaucoma of both eyes, unspecified glaucoma type H40.9 [place] [address] [address] [id number] [place] [address] 19291- 5858 Feb, [place] [address], [place] [address] 1064 Feb, [place] [address] [id number] [place] [address] 06698- 2954 Feb, [facility] [address] [place] [id number] Feb, 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 ; Anorexia R63.0 ; Irritable behavior R45.4 ; 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 and 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 [place] [address] [place] [address] 16059- 5542 Feb, [place] [address] [place] 1690465100[place], [place] [address]- 2546 Jan, [facility] [address] [id number] [id number] Dec, [facility] [address] [id number] Dec, 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 ; 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 and 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, 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 [facility] [id number] Oct, 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 ; 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 and 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, 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 [facility] [address] [place] [id number] [id number] Sep, [facility] [address] [id number] [id number] Aug, [facility] [address] [id number] Aug, Callus of foot L[address] [id number] Jul, Decubitus ulcer of head, stage 2 L89.812 [facility] [id number] Jun, 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 ; 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 ; Glaucoma of left eye, unspecified glaucoma type H40.9 and 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, 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 IMMUNIZATIONS No Known Immunizations SOCIAL HISTORY Never Assessed REASON FOR VISIT Foot callous PLAN OF CARE Activity Details Follow Up prn Reason: VITAL SIGNS MEDICATIONS Medication Instructions Dosage Frequency Start Date End Date Duration Status Multivitamin Adult - Active Ibuprofen 200 mg Orally Once a day 1 tablet with food or milk 24h Active Lutein 6 MG Orally Once a day 1 capsule with a meal 24h Active Zantac 150 MG Orally Once a day 1 tablet 24h Active Flonase 50 MCG/ACT Nasally Once a day 2 sprays in each nostril 24h Active Brimonidine Tartrate 0.2 % 1 DROP IN LEFT EYE TWICE DAILY 37 Active Xalatan 0.005 % Ophthalmic Once a day 1 drop into affected eye in the evening 24h Active Idalia 128 2 % Ophthalmic 3 times a day 1 drop into affected eye 8h Active Remeron 15 MG Orally Once a day 1 tablet at bedtime 24h Active Mirtazapine 15 MG TAKE 1 TABLET BY MOUTH ONCE DAILY 30 Active Milk of Magnesia 400 MG/5ML Orally 2 times a day 30 ml as needed 12h Active Dorzolamide HCl-Timolol Mal 22.3-6.8 MG/ML 1 DROP IN LEFT EYE TWICE DAILY 75 Active Fleet Enema 7-19 GM/118ML Rectal every 30 minutes as needed for constipation, not to exceed 2 doses in 24hrs 1 enema Active RESULTS No Results PROCEDURES Procedure Date Ordered Result Body Site Stable Visit (10 minutes) Aug 16, 2017 INSTRUCTIONS MEDICATIONS ADMINISTERED No Known Medications MEDICAL (GENERAL) HISTORY Type Description Date Medical History Neurofibromatosis Medical History 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
--- OUTSIDE RECORDS SUMMARY | 2018-09-06 09:11 | XMS REPORT ---
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, 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 07089061 ALLERGIES No Information ENCOUNTERS Encounter Location Date Diagnosis [facility] [address] [place] [id number] May, Sepsis, due to unspecified organism A41.9 [place] [address] [place] [address] 54650- 7619 17 May, 2018 [place] [address] [place] [address] 62152- 0341 15 Apr, 2018 [facility] [address] [place] [id number] 14 Apr, 2018 Anorexia R63.0 ; Irritable behavior R45.4 and 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 [place] [address] [place] [address] 36810- 3390 13 Apr, 2018 [place] [address] [id number] [place] [address] 37442- 5426 12 Apr, 2018 Anorexia R63.0 [place] [address] [place] [address] 27380- 1911 07 Apr, 2018 Anorexia R63.0 [facility] [address] [address] Apr, Irritable behavior R45.4 [facility] [address] [address] March, [facility] [id number] [place] [address] 49224- 7239 March, Glaucoma of both eyes, unspecified glaucoma type H40.9 [facility] [address] [place] [address] 34058- 1743 Feb, [facility] [id number] [place] [address] 04454- 8773 Feb, [facility] [id number] [place] [address] 92217- 4627 Feb, [facility] [id number] Feb, 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 ; Anorexia R63.0 ; Irritable behavior R45.4 ; 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 and 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 [facility] [address] [address] Feb, [facility] [address] [address] Jan, [facility] [id number] [place] [address] [id number] Dec, [facility] [id number] Dec, 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 ; 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 and 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, 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 [facility] [id number] Oct, 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 ; 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 and 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, 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 [facility] [id number] [place] [id number] Sep, [facility] [address] [id number] [place] [id number] Aug, [facility] [address] [place] [id number] Aug, Callus of foot L[address] [id number] Jul, Decubitus ulcer of head, stage 2 L89.812 [facility] [address] [place] [id number] Jun, 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 ; 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 ; Glaucoma of left eye, unspecified glaucoma type H40.9 and 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
--- OUTSIDE RECORDS SUMMARY | 2018-09-06 09:11 | XMS REPORT ---
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, 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 48036458 ALLERGIES No Information ENCOUNTERS Encounter Location Date Diagnosis [facility] [place] [address] [place] [phone] May, Sepsis, due to unspecified organism A41.9 [place] [address] [place] [address] 27842- 2482 17 May, 2018 [place] [address] [place] [address] 82307- 4046 15 Apr, 2018 [facility] [place] [address] [place] [id number] 14 Apr, 2018 Anorexia R63.0 ; Irritable behavior R45.4 and 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 [place] [address] [place] [address] 22850- 7914 13 Apr, 2018 [place] [address] [place] [id number] [place] [address] 22126- 0735 12 Apr, 2018 Anorexia R63.0 [place] [address] [place] [address] 89818- 4551 07 Apr, 2018 Anorexia R63.0 [facility] [address] [address] Apr, Irritable behavior R45.4 [facility] [address] [address] March, [facility] [address] [id number] [place] [address] 95781- 9216 March, Glaucoma of both eyes, unspecified glaucoma type H40.9 [facility] [address] [place] [address] 22717- 9461 Feb, [facility] [address] [id number] [place] [address] 27679- 3344 Feb, [facility] [address] [id number] [place] [address] 23889- 2905 Feb, [facility] [id number] Feb, 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 IMMUNIZATIONS No Known Immunizations SOCIAL HISTORY Never Assessed REASON FOR VISIT Refill eye drops PLAN OF CARE VITAL SIGNS MEDICATIONS Medication Instructions Dosage Frequency Start Date End Date Duration Status Dorzolamide HCl 2 % Ophthalmic 2 times a day 1 drop into both eyes 12h March, Active Timolol Maleate 0.5 % Ophthalmic twice a day 1 drop into both eyes March, Active RESULTS No Results PROCEDURES No Known procedures INSTRUCTIONS MEDICATIONS ADMINISTERED No Known Medications MEDICAL (GENERAL) HISTORY Type Description Date Medical History Neurofibromatosis Medical History 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
--- OUTSIDE RECORDS SUMMARY | 2018-09-06 09:11 | XMS REPORT ---
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, 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 48307229 ALLERGIES No Information ENCOUNTERS Encounter Location Date Diagnosis [place] [address] [address] [id number] [place] [address] 64565- 5399 March, Glaucoma of both eyes, unspecified glaucoma type H40.9 [place] [address] [address] [id number] [place] [address] 84521- 8779 Feb, [place] [address] [address] Feb, [place] [address] [address] [id number] [place] [address] 29023- 1341 Feb, [facility] [place] [address] [place] [id number] Feb, 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 ; Anorexia R63.0 ; Irritable behavior R45.4 ; 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 and 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 [place] [address] [place] [address] 32176- 7537 Feb, [place] [address] [place] [id number] [address] Jan, [facility] [address] [id number] [id number] Dec, [facility] [address] [id number] Dec, 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 ; 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 and 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, 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 [facility] [address] [id number] Oct, 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 ; 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 and 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, 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 [facility] [address] [id number] [id number] Sep, [facility] [address] [id number] [place] [id number] Aug, [facility] [address] [id number] Aug, Callus of foot L[address] [id number] Jul, Decubitus ulcer of head, stage 2 L89.812 [facility] [id number] Jun, 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
--- OUTSIDE RECORDS SUMMARY | 2018-09-06 09:11 | XMS REPORT ---
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, 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 93836630 ALLERGIES No Information ENCOUNTERS Encounter Location Date Diagnosis [place] [address] [place] [address] 72434- 0474 March, [place] [address] [place] [id number] [place] [address] 23674- 4456 March, Glaucoma of both eyes, unspecified glaucoma type H40.9 [place] [address], [place] [address] 7853 Feb, [place] [address] [address] 8024 Feb, [place] [address] [place] [address] 37151- 8980 Feb, [facility] [address] [place] [id number] Feb, 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 ; Anorexia R63.0 ; Irritable behavior R45.4 ; 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 and 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 [place] [address] [place] [id number] [address] 2546 Feb, [facility] [address] [id number] [address] Jan, [facility] [address] [id number] [id number] Dec, [facility] [place] [address] [place] [id number] Dec, 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 ; 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 and 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, 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 [facility] [address] [id number] Oct, 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 ; 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 and 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, 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 [facility] [address] [id number] [id number] Sep, [facility] [address] [id number][place] [id number] Aug, [facility] [address] [id number] Aug, Callus of foot L84 [facility] [address] [id number] Jul, Decubitus ulcer of head, stage [address] [id number] Jun, 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
--- OUTSIDE RECORDS SUMMARY | 2018-09-06 09:11 | XMS REPORT ---
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, 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 41314020 ALLERGIES No Information ENCOUNTERS Encounter Location Date Diagnosis [place] [address] [id number] [place] [address] 98321- 5189 March, Glaucoma of both eyes, unspecified glaucoma type H40.9 [place] [address] [place] [address] [id number] [place] [address] 14991- 0483 Feb, [place] [address] [address] 9252 Feb, [place] [address] [place] [address] [id number] [place] [address] 67060- 2207 Feb, [facility] [place] [address] [place] [id number] Feb, 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 ; Anorexia R63.0 ; Irritable behavior R45.4 ; 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 and 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 [place] [address] [place] [address] 45717- 0970 Feb, [place] [address] [place] [id number] [address] 2546 Jan, [facility] [address] [id number] [id number] Dec, [facility] [address] [id number] Dec, 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 ; 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 and 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, 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 [facility] [address] [id number] Oct, 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 ; 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 and 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, 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 [facility] [address] [id number] [id number] Sep, [facility] [address] [id number][place] [id number] Aug, [facility] [address] [id number] Aug, Callus of foot L84 [facility] [address] [id number] Jul, Decubitus ulcer of head, stage 2 L89.812 [facility] [id number] Jun, 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 ; 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 ; Glaucoma of left eye, unspecified glaucoma type H40.9 and 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, 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 IMMUNIZATIONS No Known Immunizations SOCIAL HISTORY Never Assessed REASON FOR VISIT [place] PLAN OF CARE Activity Details Follow Up prn Reason: VITAL SIGNS MEDICATIONS Medication Instructions Dosage Frequency Start Date End Date Duration Status Milk of Magnesia 400 MG/5ML Orally 2 times a day 30 ml as needed 12h Active Lutein 6 MG Orally Once a day 1 capsule with a meal 24h Active Ibuprofen 200 mg Orally Once a day 1 tablet with food or milk 24h Active Brimonidine Tartrate 0.2 % Ophthalmic 2 times a day 1 drop into left eye 12h Active Zantac 150 MG Orally Once a day 1 tablet 24h Active Dorzolamide HCl-Timolol Mal 22.3-6.8 MG/ML Ophthalmic Twice a day 1 drop into left eye 12h Active Flonase 50 MCG/ACT Nasally Once a day 2 sprays in each nostril 24h Active Multivitamin Adult - Active Idalia 128 2 % Ophthalmic 3 times a day 1 drop into affected eye 8h Active Fleet Enema 7-19 GM/118ML Rectal every 30 minutes as needed for constipation, not to exceed 2 doses in 24hrs 1 enema Active Remeron 15 MG Orally Once a day 1 tablet at bedtime 24h Active Xalatan 0.005 % Ophthalmic Once a day 1 drop into affected eye in the evening 24h Active RESULTS No Results PROCEDURES Procedure Date Ordered Result Body Site Stable Visit (10 minutes) Jul 26, 2017 INSTRUCTIONS MEDICATIONS ADMINISTERED No Known Medications MEDICAL (GENERAL) HISTORY Type Description Date Medical History Neurofibromatosis Medical History 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
[2018-09-06] MEDS ORDERED: morphine INJ 10 MG/ML 1ML (SYR OR VIAL) IVP STA ×3 (09:22→10:17)
[2018-09-06] MEDS ORDERED: LORazepam INJ 2 MG/ML (ATIVAN) VIAL ONE (09:24)
[2018-09-06] MEDS ORDERED: morphine INJ 10 MG/ML 1ML (SYR OR VIAL) ONE (09:24)
[2018-09-06] MEDS ORDERED: LORazepam INJ 2 MG/ML (ATIVAN) VIAL IVP ONE ×3 (09:30→10:30)
--- NOTE | 2018-09-06 09:39 | ED Respiratory ---
General Chief Complaint: Respiratory Problems Stated Complaint: RESPIRATORY DISTRESS Source: family (DAUGHTER), EMS, long term records, old records Exam Limitations: clinical condition (PT WITH DEMENTIA, ALSO IS OBTUNDED) History of Present Illness Date Seen by Provider: Sep 06, 2018 Time Seen by Provider: 09:00 Initial Comments PT AR[facility]IA [facility] PT WAS EATING BREAKFAST AND SUDDENLY STOPPED EATING EMS WAS CALLED FOR RESPIRATORY DISTRESS INITIAL O2 SAT BY EMS WAS 79% ON ROOM AIR. EMS GAVE DUO NEB TX AND PLACED ON CPAP. O2 SAT DROPPED TO 58%, THEN BACK UP TO 65% EMS AND PRISON REPORT THAT PT IS A "FULL CODE" PT WITH END STAGE DEMENTIA 911--DAUGHTER HERE, AND IS ADAMANT THAT PT IS DNR/DNI. SHE STATES PT HAS BEEN READY TO GO FOR A LONG TIME--IN 2 WEEKS WILL BE THE ANNIVERSARY OF HIS 'S SHE STATES HE HAS NOT RECOGNIZED HER IN AT LEAST 2 YEARS, AND HAS BECOME VERY MEAN, YELLING, CURSING ALL THE TIME SHE STATES SHE HAS BEEN TRYING TO GET HIM ON HOSPICE, BUT WAS TOLD THAT HE DID NOT QUALIFY DAUGHTER IS MATERIAL FLOW ANALYST AND RECOGNIZES THAT PT IS MOTTLED AND IMMEDIATELY STATES SHE WANTS ALL EFFORTS STOPPED AND WANTS HIM ONLY TO BE MADE COMFORTABLE STATES SHE DOES NOT WANT ANY MORE IV STICKS AND WANTS PT REMOVED FROM BIPAP AND STATES TO "JUST LET HIM GO--HE'S BEEN READY FOR A LONG TIME" SHE WISHES ONLY THAT HE BE MADE COMFORTABLE PCP: DR. POOL Allergies and Home Medications Allergies Coded Allergies: No Known Drug Allergies (Verified , 02/26/09) Home Medications Arginine/Ascorbate Sod/Zuly AC 1 Each Powd.pack, 1 PACKET PO BID, (Reported) Bisacodyl 10 Mg Supp.rect, 10 MG RC DAILY PRN for CONSTIPATION-3RD LINE, ( Reported) use if MOM is non effective Brimonidine Tartrate 5 Ml Btl, 1 DROP OS BID, (Reported) Cefdinir 300 Mg Capsule, 300 MG PO BID Prescribed by: GURJIT RENAE on 05/29/18 1338 Dextran 70/Hypromellose 1 Each Droperette, 1 EACH OS TID, (Reported) Dorzolamide HCl 10 Ml Drops, 1 DROP OU BID, (Reported) Escitalopram Oxalate 10 Mg Tablet, 10 MG PO DAILY, (Reported) Ibuprofen 200 Mg Tablet, 200 MG PO DAILY, (Reported) Latanoprost 2.5 Ml Drops, 1 DROP OS HS, (Reported) Magnesium Hydroxide 400 Mg/5 Ml Oral.susp, 400 MG PO Q12H PRN for CONSTIPATION- 2ND LINE, (Reported) Mirtazapine 15 Mg Tablet, 15 MG PO DAILY, (Reported) Multivitamin 1 Each Tablet, 1 EACH PO DAILY, (Reported) Na Phos,M-B/Na Phos,Di-Ba 133 Ml Enema, 1 EACH RC Q30M PRN for CONSTIPATION-1ST LINE, (Reported) repeat in 30 mins if no results. do not exceed 2 doses in 24 hrs. 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; RIGHT EYE REMOVED; MULTIPLE ABSCESS I&D'S) Amputation, Eye Surgery, Orthopedic Respiratory: Yes Pneumonia Cardiac: Yes Hypertension Neurological: Yes (NEUROFIBROMATOSIS) Dementia Reproductive Disorders: No Genitourinary: No Gastrointestinal: Yes Chronic Constipation Musculoskeletal: Yes (NEUROFIBROMATOSIS; 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 5.0oz. [id number]; 16.7 BMI Method:Stated General Appearance: severe distress, cachetic HEENT: other (RIGHT EYE MISSING) Respiratory: respiratory distress (SEVERE), accessory muscle use (MARKED), rhonchi, other (AUDIBLE RHONCHI FROM DOORWAY. ON AUSCULTATION, PT HAS SIGNIFICANT RHONCHI --RIGHT > LEFT. DECREASED AERATION ON RIGHT . ) Cardiovascular: tachycardia Gastrointestinal: other (SCAPHOID ABDOMEN) Extremities: slow capillary refill, other (LEFT BKA) Neurologic/Psychiatric: other (OBTUNDED, WITHDRAWS ONLY TO PAIN ) Skin: cyanosis, cool, mottled, other (NEUROFIBROMAS ALL OVER BODY) Progress/Results/Core Measures Suspected Sepsis SIRS Temperature: Pulse: Respiratory Rate: Blood Pressure / Mean: Results/Orders My Orders Orders - BAM MALIN DO Morphine Injection (Morphine Injection (09/06/18 09:22) Lorazepam Injection (Ativan Injection) (09/06/18 09:30) Morphine Injection (Morphine Injection (09/06/18 09:24) Lorazepam Injection (Ativan Injection) (09/06/18 09:24) Lorazepam Injection (Ativan Injection) (09/06/18 09:45) Morphine Injection (Morphine Injection (09/06/18 09:39) Morphine Injection (Morphine Injection (09/06/18 10:17) Lorazepam Injection (Ativan Injection) (09/06/18 10:30) Medications Given in ED Current Medications Medications Dose Ordered Sig/Selena Route Start Time Stop Time Status Last Admin Dose Admin Lorazepam 0.5 mg ONCE ONCE IVP 09/06/18 09:30 09/06/18 09:31 DC 09/06/18 09:26 0.5 MG Lorazepam 0.5 mg ONCE ONCE IVP 09/06/18 09:45 09/06/18 09:46 DC 09/06/18 09:41 0.5 MG Lorazepam 0.5 mg ONCE ONCE IVP 09/06/18 10:30 09/06/18 10:31 DC 09/06/18 10:20 0.5 MG Vital Signs/I&O 09/06/18 09/06/18 09:04 09:15 B/P (MAP) Pulse Ox 62 O2 Delivery NIV/CPAP O2 Flow Rate 100.00 Capillary Refill : Progress Note : Progress Note ALL EFFORTS IMMEDIATELY STOPPED, AT DAUGHTER'S REQUEST. PT GIVEN SMALL DOSES OF ATIVAN AND MORPHINE FOR COMFORT. Departure Communication (Admissions) Family Conversation 1000--DAUGHTER STATES SHE DOES NOT WANT HIM TO IN THE HOSPITAL, AND WOULD LIKE HIM TO GO BACK TO THE PRISON, IT HAS BEEN HIS HOME FOR THE LAST FEW YEARS. SHE STATES THAT SHE HAS ALREADY CONTACTED [facility] AND THEY WILL TAKE HIM. 1001--SPOKE WITH DR. RICE, VACUUM CLOSING MACHINE OPERATOR FOR [facility]. SHE AGREES WITH ALL OF THE ABOVE , AND WILL GIVE ORDERS FOR COMFORT CARE AND HOSPICE. 1005--RN ON PHONE WITH PRISON AND THEN WITH [facility] FOR TRANSPORT BACK TO PRISON. Impression Primary Impression: ACUTE RESPIRATORY DISTRESS AND FAILURE Additional Impressions: SUSPECTED ASPIRATION END STAGE DEMENTIA Disposition: XF SNF Condition: Unchanged Departure-Patient Inst. Referrals: ANTOLIN POOL MD NO,LOCAL PHYSICIAN (PCP) Primary Care Physician Patient Instructions: Aspiration Pneumonia (DC) Add. Discharge Instructions: PT TO RETURN TO PRISON ON COMFORT MEASURES AND HOSPICE--[facility] IS DAUGHTER'S PREFERENCE DAUGHTER ADVISES THAT PT IS DNR/DNI FURTHER ORDERS BY [facility] All discharge instructions reviewed with patient and/or family. Voiced understanding. BAM MALIN DO Sep 06, 2018 09:39
[2018-09-06 10:38] VITALS: BP 0/0
== END 2018-09-06 10:38 ==
LOC: EDUNIT# 09:04 → ER 09:05
DX: J96.90 Respiratory failure, unspecified, unspecified whether with hypoxia or hypercapnia (principal); F03.90 Unspecified dementia, unspecified severity, without behavioral disturbance, psychotic disturbance, mood disturbance, and anxiety; I10 Essential (primary) hypertension; Z86.14 Personal history of Methicillin resistant Staphylococcus aureus infection; Z87.19 Personal history of other diseases of the digestive system; Z87.891 Personal history of nicotine dependence; Z87.01 Personal history of pneumonia (recurrent)
CPT/HCPCS: 36600; 94660; 96374; 96375; 96376